=== PATIENT | female | born 1945 | race American Indian/Alaskan Native ===

== ENCOUNTER 2019-05-05 23:22 | Inpatient (IN) | payer MEDICARE, MEDICAID ==
--- NOTE | 2019-05-06 00:16 | XRay Report ---
CHEST 1 VIEW INDICATION: Dyspnea. COMPARISON: none FINDINGS: SUPPORT DEVICES: Pacing device located left hemithorax electrode tips right atrium and right ventricl e HEART / MEDIASTINUM: No significant abnormality. LUNGS / PLEURA: No significant pulmonary or pleural abnormality. No pneumothorax. ADDITIONAL FINDINGS: IMPRESSION: 1. No acute findings. Signer Name: Hiram Vasquez MD Signed: 05/06/2019 12:12 AM Workstation Name: [id number]
[2019-05-06] MEDS ORDERED: IPRATROPIUM 0.02% NEBU 2.5 ML IH ONE (00:27)
[2019-05-06] MEDS ORDERED: MAGNESIUM SULFATE 2 GM/50 ML BAG IV ONE (00:27)
[2019-05-06] MEDS ORDERED: methylPREDNISolone Sod Succinate 125 MG/2 ML INJ IV ONE (00:27)
[2019-05-06] MEDS ORDERED: ALBUTEROL 2.5 MG/3 ML NEBU IH ONE (00:27)
--- NOTE | 2019-05-06 00:28 | Emergency Department Report ---
ED Shortness of Breath HPI - General Chief Complaint: Dyspnea/Respdistress Stated Complaint: DWAYNE Time Seen by Provider: 05/05/19 23:24 Source: patient, family, EMS (verbal report received from EMS.EMS records not available at time of chart dictation.), RN notes reviewed Mode of arrival: Stretcher Limitations: Physical Limitation - History of Present Illness Initial Comments: The patient is a 74-year-old female visiting from [place]. She has a history of reported ICD/pacemaker, as well as congestive heart failure. She and her family are not certain about the other details of her past medical history. Presents to the ER with complaint of pain and the shortness of breath wheezing. Patient states " Im full of fluid." EMS gave the patient 5 mg of albuterol in the field The patient denies physical pain. MD Complaint: shortness of breath -: Gradual, days(s) (1) Consistency: constant Improves With: oxygen, rest, upright position Worsens With: lying flat, exertion Known History Of: congestive heart failure Treatments Prior to Arrival: bronchodilator - Related Data Home Oxygen Therapy: No Home Medications Medication Instructions Recorded Confirmed Last Taken AtorvaSTATin [Lipitor] 40 mg PO QHS 05/06/19 05/06/19 Unknown Budesonide/Formoterol Fumarate 2 puff IH BID 05/06/19 05/06/19 Unknown [Symbicort 160-4.5 Mcg Inhaler] Bumetanide 2.5 mg PO BID 05/06/19 05/06/19 Unknown Clopidogrel [Plavix] 75 mg PO QDAY 05/06/19 05/06/19 Unknown Fluticasone/Vilanterol [Breo 1 puff IH DAILY 05/06/19 05/06/19 Unknown Ellipta 200-25 Mcg INH] Gabapentin [Neurontin] 100 mg PO TID 05/06/19 05/06/19 Unknown Insulin Aspart (Nf) [NovoLOG 100 5 units SUB-Q TID 05/06/19 05/06/19 Unknown UNITS/ML VIAL] Ipratropium/Albuter (Nf) 1 puff IH Q8HR 05/06/19 05/06/19 Unknown [Combivent Inhaler] Levothyroxine [Synthroid] 100 mcg PO QAM 05/06/19 05/06/19 Unknown Nystatin [Nystop Powder] 1 applicatio TP BID 05/06/19 05/06/19 Unknown PANTOPRAZOLE SODIUM (nf) [Protonix 40 mg PO DAILY 05/06/19 05/06/19 Unknown GRANULES] Potassium Chloride 20 meq PO DAILY 05/06/19 05/06/19 Unknown Sacubitril/Valsartan [Entresto 1 tab PO BID 05/06/19 05/06/19 Unknown 49-51 mg] allopurinoL [Zyloprim] 100 mg PO QDAY 05/06/19 05/06/19 Unknown carvediloL [Coreg] 25 mg PO DAILY 05/06/19 05/06/19 Unknown Allergies Allergy/AdvReac Type Severity Reaction Status Date / Time Penicillins Allergy Unknown Verified 05/05/19 23:49 ED Review of Systems ROS: Stated complaint: DWAYNE Other details as noted in HPI Constitutional: malaise ENT: congestion Respiratory: shortness of breath, SOB with exertion Cardiovascular: edema. denies: chest pain Endocrine: see HPI Gastrointestinal: denies: vomiting Genitourinary: as per HPI Musculoskeletal: as per HPI Skin: as per HPI Neurological: as per HPI, weakness Psychiatric: as per HPI ED Past Medical Hx - Past Medical History Previous Medical History?: Yes Hx CVA: Yes Hx Heart Attack/AMI: Yes Hx Congestive Heart Failure: Yes Hx Diabetes: Yes Hx COPD: Yes - Surgical History Past Surgical History?: Yes Hx Coronary Stent: Yes Hx Pacemaker: Yes (defib implant) Additional Surgical History: triple bypass - Social History Smoking Status: Former Smoker Substance Use Type: None - Medications Home Medications: Home Medications Medication Instructions Recorded Confirmed Last Taken Type AtorvaSTATin [Lipitor] 40 mg PO QHS 05/06/19 05/06/19 Unknown History Budesonide/Formoterol Fumarate 2 puff IH BID 05/06/19 05/06/19 Unknown History [Symbicort 160-4.5 Mcg Inhaler] Bumetanide 2.5 mg PO BID 05/06/19 05/06/19 Unknown History Clopidogrel [Plavix] 75 mg PO QDAY 05/06/19 05/06/19 Unknown History Fluticasone/Vilanterol [Breo 1 puff IH DAILY 05/06/19 05/06/19 Unknown History Ellipta 200-25 Mcg INH] Gabapentin [Neurontin] 100 mg PO TID 05/06/19 05/06/19 Unknown History Insulin Aspart (Nf) [NovoLOG 100 5 units SUB-Q TID 05/06/19 05/06/19 Unknown History UNITS/ML VIAL] Ipratropium/Albuter (Nf) 1 puff IH Q8HR 05/06/19 05/06/19 Unknown History [Combivent Inhaler] Levothyroxine [Synthroid] 100 mcg PO QAM 05/06/19 05/06/19 Unknown History Nystatin [Nystop Powder] 1 applicatio TP BID 05/06/19 05/06/19 Unknown History PANTOPRAZOLE SODIUM (nf) [Protonix 40 mg PO DAILY 05/06/19 05/06/19 Unknown History GRANULES] Potassium Chloride 20 meq PO DAILY 05/06/19 05/06/19 Unknown History Sacubitril/Valsartan [Entresto 1 tab PO BID 05/06/19 05/06/19 Unknown History 49-51 mg] allopurinoL [Zyloprim] 100 mg PO QDAY 05/06/19 05/06/19 Unknown History carvediloL [Coreg] 25 mg PO DAILY 05/06/19 05/06/19 Unknown History ED Physical Exam - General Limitations: Physical Limitation General appearance: anxious, lethargic, obese - Head Head exam: Present: atraumatic, normocephalic - Eye Eye exam: Present: normal appearance, EOMI - ENT ENT exam: Present: normal exam, normal orophraynx, mucous membranes moist, normal external ear exam - Neck Neck exam: Present: normal inspection, full ROM. Absent: tenderness, meningismus - Respiratory Respiratory exam: Present: respiratory distress, rales - Cardiovascular Cardiovascular Exam: Present: regular rate, normal rhythm, normal heart sounds. Absent: bradycardia, tachycardia, irregular rhythm, systolic murmur, diastolic murmur, rubs, gallop - GI/Abdominal GI/Abdominal exam: Present: soft. Absent: distended, tenderness, guarding, rebound, rigid, pulsatile mass - Extremities Exam Extremities exam: Present: normal inspection, full ROM, pedal edema, other (2+ pulses noted in the bilateral upper and lower extremities. The pelvis is stable. There is no long bony tenderness. The muscular compartments are soft. There is no redness, pus, streaking or erythema.). Absent: calf tenderness - Back Exam Back exam: Present: normal inspection. Absent: tenderness, CVA tenderness (R), CVA tenderness (L), paraspinal tenderness, vertebral tenderness - Neurological Exam Neurological exam: Present: other (there is no facial droop. The tongue is midline. Extraocular movements are intact bilaterally. Speaking in full sentences. Hearing is grossly intact. 5 out of 5 strength bilateral upper and lower extremities. Sensation is intact to light touch bilateral upper and lower extremities.). Absent: alert (the patient is listless, but arousable) - Psychiatric Psychiatric exam: Present: flat affect - Skin Skin exam: Present: warm, dry, intact, normal color. Absent: rash ED Course Vital Signs 05/05/19 23:49 Temperature 97.5 F L Pulse Rate 81 Respiratory 23 Rate Blood Pressure 131/68 [Left] O2 Sat by Pulse 98 Oximetry - Reevaluation(s) Reevaluation #1: 05/06/19 00:25 Differential diagnoses, including not limited to: Asthma, COPD, bronchitis, pneumonia, congestive heart failure Assessment and plan: 74-year-old female with audible wheezing, crackles, rales, likely having fluid overload/CHF exacerbation. She is mentating but sleepy, however she is arousable, started on BiPAP therapy. Screening laboratory studies ordered. Radiology x-ray interpretation is reviewed and appreciated, however, it is my interpretation that the x-ray shows pulmonary vascular congestion. The patient on BiPAP at this time. We have requested medications be Reconciled. Reevaluation #2: 05/06/19 00:49 Feeling improved. Mental status improved. Patient appears to have history of COPD, diabetes, high cholesterol, CHF, currently on Plavix, unknown if she has any stents. Medication reconciliation pending. Laboratory studies pending. Reevaluation #3: 05/06/19 01:31 Laboratory studies reviewed and appreciated. Patient not having chest pain. This is likely a type II troponin leak, likely secondary to multiple medical comorbidities, and question cardiorenal syndrome. Lasix ordered. Hospital physician, Dr. Staton to accept patient to the medical service ED Medical Decision Making - Lab Data Result diagrams: 05/06/19 00:14 05/06/19 00:14 Vital Signs 05/05/19 23:49 Temperature 97.5 F L Pulse Rate 81 Respiratory 23 Rate Blood Pressure 131/68 [Left] O2 Sat by Pulse 98 Oximetry Vital Signs 05/05/19 23:49 Temperature 97.5 F L Pulse Rate 81 Respiratory 23 Rate Blood Pressure 131/68 [Left] O2 Sat by Pulse 98 Oximetry Lab Results 05/06/19 05/06/19 05/06/19 Range/Units 00:14 00:14 00:14 WBC 10.9 (4.5-11.0) K/mm3 RBC 3.78 (3.65-5.03) M/mm3 Hgb 10.8 (10.1-14.3) gm/dl Hct 35.0 (30.3-42.9) % MCV 93 (79-97) fl MCH 29 (28-32) pg MCHC 31 (30-34) % RDW 18.5 H (13.2-15.2) % Plt Count 193 (140-440) K/mm3 Lymph % (Auto) 8.3 L (13.4-35.0) % [place] % (Auto) 6.0 (0.0-7.3) % Eos % (Auto) 1.3 (0.0-4.3) % Baso % (Auto) 1.6 (0.0-1.8) % Lymph # 0.9 L (1.2-5.4) K/mm3 [place] # 0.6 (0.0-0.8) K/mm3 Eos # 0.1 (0.0-0.4) K/mm3 Baso # 0.2 H (0.0-0.1) K/mm3 Seg Neutrophils % 82.8 H (40.0-70.0) % Seg Neutrophils # 9.0 H (1.8-7.7) K/mm3 PT 14.3 (12.2-14.9) Sec. INR 1.10 (0.87-1.13) APTT 27.7 (24.2-36.6) Sec. Sodium 141 (137-145) mmol/L Potassium 5.1 H (3.6-5.0) mmol/L Chloride 105.4 (98-107) mmol/L Carbon Dioxide 24 (22-30) mmol/L Anion Gap 17 mmol/L BUN 62 H (7-17) mg/dL Creatinine 2.2 H (0.7-1.2) mg/dL Estimated GFR 22 ml/min BUN/Creatinine Ratio 28 % Glucose 173 H (65-100) mg/dL Calcium 9.9 (8.4-10.2) mg/dL Magnesium 2.00 (1.7-2.3) mg/dL Total Bilirubin 0.50 (0.1-1.2) mg/dL AST 15 (5-40) units/L ALT 9 (7-56) units/L Alkaline Phosphatase 56 (35-129) units/L Total Creatine Kinase (30-135) units/L Troponin T 0.112 H* (0.00-0.029) ng/mL Total Protein 7.6 (6.3-8.2) g/dL Albumin 3.7 L (3.9-5) g/dL Albumin/Globulin Ratio 0.9 % 05/06/19 Range/Units 00:14 WBC (4.5-11.0) K/mm3 RBC (3.65-5.03) M/mm3 Hgb (10.1-14.3) gm/dl Hct (30.3-42.9) % MCV (79-97) fl MCH (28-32) pg MCHC (30-34) % RDW (13.2-15.2) % Plt Count (140-440) K/mm3 Lymph % (Auto) (13.4-35.0) % [place] % (Auto) (0.0-7.3) % Eos % (Auto) (0.0-4.3) % Baso % (Auto) (0.0-1.8) % Lymph # (1.2-5.4) K/mm3 [place] # (0.0-0.8) K/mm3 Eos # (0.0-0.4) K/mm3 Baso # (0.0-0.1) K/mm3 Seg Neutrophils % (40.0-70.0) % Seg Neutrophils # (1.8-7.7) K/mm3 PT (12.2-14.9) Sec. INR (0.87-1.13) APTT (24.2-36.6) Sec. Sodium (137-145) mmol/L Potassium (3.6-5.0) mmol/L Chloride (98-107) mmol/L Carbon Dioxide (22-30) mmol/L Anion Gap mmol/L BUN (7-17) mg/dL Creatinine (0.7-1.2) mg/dL Estimated GFR ml/min BUN/Creatinine Ratio % Glucose (65-100) mg/dL Calcium (8.4-10.2) mg/dL Magnesium (1.7-2.3) mg/dL Total Bilirubin (0.1-1.2) mg/dL AST (5-40) units/L ALT (7-56) units/L Alkaline Phosphatase (35-129) units/L Total Creatine Kinase 53 (30-135) units/L Troponin T (0.00-0.029) ng/mL Total Protein (6.3-8.2) g/dL Albumin (3.9-5) g/dL Albumin/Globulin Ratio % - EKG Data 05/06/19 00:27 There is no prior EKG available for comparison. There is an atrioventricular paced rhythm, with good capture, not consistent with STEMI, left ventricular hypertrophy, leftward axis deviation, no prior for comparison, not consistent with ST elevation myocardial infarction - Radiology Data Radiology results: pending, report reviewed, image reviewed Critical Care Time: Yes Critical care time in (mins) excluding proc time.: 35 Critical care attestation.: If time is entered above; I have spent that time in minutes in the direct care of this critically ill patient, excluding procedure time. ED Disposition Clinical Impression: Cardiorenal syndrome with renal failure Disposition: OP ADMIT IP TO THIS HOSP Is pt being admited?: Yes Does the pt Need Aspirin: Yes Condition: Stable
[2019-05-06 00:42] LABS: Basophils # (Auto) 0.2 K/mm3 (0.0-0.1); Basophils % (Auto) 1.6 % (0.0-1.8); Eosinophils # (Auto) 0.1 K/mm3 (0.0-0.4); Eosinophils % (Auto) 1.3 % (0.0-4.3); Hemoglobin 10.8 gm/dl (10.1-14.3); Lymphocytes # (Auto) 0.9 K/mm3 (1.2-5.4); Lymphocytes % (Auto) 8.3 % (13.4-35.0); Mean Corpuscular HGB Conc 31 % (30-34); Mean Corpuscular Volume 93 fl (79-97); Monocytes # (Auto) 0.6 K/mm3 (0.0-0.8); Platelet Count 193 K/mm3 (140-440); Red Blood Count 3.78 M/mm3 (3.65-5.03); Red Cell Distribution Width 18.5 % (13.2-15.2)
[2019-05-06 00:54] LABS: INR 1.1 (0.87-1.13); Partial Thromboplastin Time 27.7 Sec. (24.2-36.6)
[2019-05-06 00:58] LABS: Albumin 3.7 g/dL (3.9-5); Calcium 9.9 mg/dL (8.4-10.2)
[2019-05-06] MEDS ORDERED: ASPIRIN 81 MG TAB CHEW PO ONE (01:31)
[2019-05-06] MEDS ORDERED: FUROSEMIDE 40 MG/4 ML INJ IV ONE (01:32)
[2019-05-06 01:56] LABS: Chol/HDL Ratio 2.72 %
[2019-05-06] MEDS ORDERED: ASPIRIN 600 MG RECT SUPP PR ONE (02:04)
[2019-05-06] MEDS ORDERED: ASPIRIN 300 MG RECT SUPP PR ONE (02:04)
[2019-05-06] MEDS ORDERED: DEXTROSE 50% IN WATER (25GM) 50 ML SYRINGE IV PRN (02:19)
[2019-05-06] MEDS ORDERED: ALBUTEROL 2.5 MG/3 ML NEBU IH PRN (02:19)
[2019-05-06] MEDS ORDERED: ACETAMINOPHEN 325 MG TAB PO PRN (02:19)
[2019-05-06] MEDS ORDERED: NITROGLYCERIN 0.4 MG TAB SUBL SL PRN (02:19)
[2019-05-06] MEDS ORDERED: ONDANSETRON 4 MG/2 ML INJ IV PRN (02:19)
--- NOTE | 2019-05-06 02:45 | History and Physical Report ---
<ADARSH HILL - Last Filed: 05/06/19 02:52> History of Present Illness Date of examination: 05/06/19 Date of admission: 05/06/2019 Chief complaint: SOB and wheezing History of present illness: 74-year-old female with history of CHF, pacemaker/ICD, CVA, AK, hypertension, diabetes, COPD, gout, hypothyroidism GERD, and HLD who presents to [facility] ED via EMS with complaints of shortness of breath and wheezing . Patient lives in [place] and is visiting her family here in [place]. Patient is a poor historian and unable to provide detailed history. History is provided by family and medical records. Pt stated to ER physician that her lungs are filled of fluid. At the time of my examination pt is drowsy easily aroused but quickly dozes back off. She did not answer any questions. She opened her eyes to light touch. Past History Past Medical History: acute AK, COPD, diabetes, GERD, heart failure, hypertension, hyperlipidemia, hypothyroidism, stroke, other (Gout, ) Past Surgical History: Other (pacemaker/ICD) Social history: lives with family (lives in [place] visiting with family in [place]; former smoker) Family history: no significant family history Medications and Allergies Allergies Allergy/AdvReac Type Severity Reaction Status Date / Time Penicillins Allergy Unknown Verified 05/05/19 23:49 Home Medications Medication Instructions Recorded Confirmed Last Taken Type AtorvaSTATin [Lipitor] 40 mg PO QHS 05/06/19 05/06/19 Unknown History Budesonide/Formoterol Fumarate 2 puff IH BID 05/06/19 05/06/19 Unknown History [Symbicort 160-4.5 Mcg Inhaler] Bumetanide 2.5 mg PO BID 05/06/19 05/06/19 Unknown History Clopidogrel [Plavix] 75 mg PO QDAY 05/06/19 05/06/19 Unknown History Fluticasone/Vilanterol [Breo 1 puff IH DAILY 05/06/19 05/06/19 Unknown History Ellipta 200-25 Mcg INH] Gabapentin [Neurontin] 100 mg PO TID 05/06/19 05/06/19 Unknown History Insulin Aspart (Nf) [NovoLOG 100 5 units SUB-Q TID 05/06/19 05/06/19 Unknown History UNITS/ML VIAL] Ipratropium/Albuter (Nf) 1 puff IH Q8HR 05/06/19 05/06/19 Unknown History [Combivent Inhaler] Levothyroxine [Synthroid] 100 mcg PO QAM 05/06/19 05/06/19 Unknown History Nystatin [Nystop Powder] 1 applicatio TP BID 05/06/19 05/06/19 Unknown History PANTOPRAZOLE SODIUM (nf) [Protonix 40 mg PO DAILY 05/06/19 05/06/19 Unknown Hi story GRANULES] Potassium Chloride 20 meq PO DAILY 05/06/19 05/06/19 Unknown History Sacubitril/Valsartan [Entresto 1 tab PO BID 05/06/19 05/06/19 Unknown History 49-51 mg] allopurinoL [Zyloprim] 100 mg PO QDAY 05/06/19 05/06/19 Unknown History carvediloL [Coreg] 25 mg PO DAILY 05/06/19 05/06/19 Unknown History Active Meds: Active Medications Acetaminophen (Tylenol) 650 mg PO Q4H PRN PRN Reason: Pain MILD(1-3)/Fever >100.5/JENKINS Albuterol (Proventil) 2.5 mg IH Q3HRT PRN PRN Reason: Shortness Of Breath Albuterol/Ipratropium (Duoneb *Not For Prn Use*) 1 ampul IH Q4HRT [facility] Allopurinol (Zyloprim) 100 mg PO QDAY [facility] Atorvastatin Calcium (Lipitor) 40 mg PO QHS [facility] Budesonide (Pulmicort) 0.5 mg IH Q12HRT [facility] Carvedilol (Coreg) 25 mg PO DAILY [facility] Clopidogrel Bisulfate (Plavix) 75 mg PO QDAY [facility] Dextrose (D50w (25gm) Syringe) 50 ml IV Q30MIN PRN; Protocol PRN Reason: Hypoglycemia Docusate Sodium (Colace) 100 mg PO BID [facility] Furosemide (Lasix) 40 mg IV BID@0600,1800 [facility] Gabapentin (Gabapentin) 100 mg PO TID [facility] Heparin Sodium (Porcine) (Heparin) 5,000 unit SUB-Q Q12HR [facility] Insulin Human Lispro (Humalog) 0 unit SUB-Q ACHS [facility]; Protocol Levothyroxine Sodium (Synthroid) 100 mcg PO QAM [facility] Miscellaneous Medication (Pantoprazole Sodium (Nf)) 40 mg PO DAILY [facility] Nitroglycerin (Nitrostat) 0.4 mg SL .Q5MIN PRN PRN Reason: Chest Pain Ondansetron HCl (Zofran) 4 mg IV Q8H PRN PRN Reason: Nausea And Vomiting Sodium Chloride (Sodium Chloride Flush Syringe 10 Ml) 10 ml IV BID [facility] Sodium Chloride (Sodium Chloride Flush Syringe 10 Ml) 10 ml IV PRN PRN PRN Reason: LINE FLUSH Review of Systems ROS unobtainable: due to mental status All systems: negative Exam - Physical Exam Narrative exam: Physical exam General appearance: Present: no acute distress, resting easily aroused but does not stay awake for long, obese, older adult female - EENT Eyes: Present: PERRL, EOM intact ENT: hearing intact, normal dentition - Neck Neck: Present: supple, normal ROM - Respiratory Respiratory effort: Non-labored, on BiPaP Respiratory: crackles and wheezing - Cardiovascular Heart rate: 81 (bpm) Rhythm: Paced Sinus rhythm Heart Sounds: Present: S1 & S2. Absent: rub, click - Extremities Extremities: no ischemia, pulses intact, trace pedal edema - Peripheral Assessment Peripheral Pulses: within normal limits - Abdominal General gastrointestinal: obese, soft, non-tender, normal bowel sounds - Integumentary Integumentary: Present: warm, dry - Musculoskeletal Musculoskeletal: Able to move all extremities -Neurological Neurological: deferred - Psychiatric Psychiatric: unable to assess - Constitutional Vitals: Temp Pulse Resp BP Pulse Ox 97.5 F L 88 22 131/68 98 05/05/19 23:49 05/06/19 02:29 05/06/19 02:29 05/05/19 23:49 05/05/19 23:49 Results - Labs CBC & Chem 7: 05/06/19 00:14 05/06/19 00:14 Labs: Laboratory Last Values WBC 10.9 K/mm3 (4.5-11.0) 05/06/19 00:14 RBC 3.78 M/mm3 (3.65-5.03) 05/06/19 00:14 Hgb 10.8 gm/dl (10.1-14.3) 05/06/19 00:14 Hct 35.0 % (30.3-42.9) 05/06/19 00:14 MCV 93 fl (79-97) 05/06/19 00:14 MCH 29 pg (28-32) 05/06/19 00:14 MCHC 31 % (30-34) 05/06/19 00:14 RDW 18.5 % (13.2-15.2) H 05/06/19 00:14 Plt Count 193 K/mm3 (140-440) 05/06/19 00:14 Lymph % (Auto) 8.3 % (13.4-35.0) L 05/06/19 00:14 Ponce % (Auto) 6.0 % (0.0-7.3) 05/06/19 00:14 Eos % (Auto) 1.3 % (0.0-4.3) 05/06/19 00:14 Baso % (Auto) 1.6 % (0.0-1.8) 05/06/19 00:14 Lymph # 0.9 K/mm3 (1.2-5.4) L 05/06/19 00:14 Ponce # 0.6 K/mm3 (0.0-0.8) 05/06/19 00:14 Eos # 0.1 K/mm3 (0.0-0.4) 05/06/19 00:14 Baso # 0.2 K/mm3 (0.0-0.1) H 05/06/19 00:14 Seg Neutrophils % 82.8 % (40.0-70.0) H 05/06/19 00:14 Seg Neutrophils # 9.0 K/mm3 (1.8-7.7) H 05/06/19 00:14 PT 14.3 Sec. (12.2-14.9) 05/06/19 00:14 INR 1.10 (0.87-1.13) 05/06/19 00:14 APTT 27.7 Sec. (24.2-36.6) 05/06/19 00:14 POC ABG pH 7.406 (7.35-7.45) 05/06/19 01:12 POC ABG pCO2 39.1 (35-45) 05/06/19 01:12 POC ABG pO2 133 (80-105) H 05/06/19 01:12 POC ABG HCO3 24.6 (22-26 mml/L) 05/06/19 01:12 POC ABG Total CO2 26 (23-27mmol/L) 05/06/19 01:12 POC ABG O2 Sat 99 05/06/19 01:12 POC ABG Base Excess 0 ((-2) - (+3)mmol/L) 05/06/19 01:12 FiO2 35 % 05/06/19 01:12 Sodium 141 mmol/L (137-145) 05/06/19 00:14 Potassium 5.1 mmol/L (3.6-5.0) H 05/06/19 00:14 Chloride 105.4 mmol/L (98-107) 05/06/19 00:14 Carbon Dioxide 24 mmol/L (22-30) 05/06/19 00:14 Anion Gap 17 mmol/L 05/06/19 00:14 BUN 62 mg/dL (7-17) H 05/06/19 00:14 Creatinine 2.2 mg/dL (0.7-1.2) H 05/06/19 00:14 Estimated GFR 22 ml/min 05/06/19 00:14 BUN/Creatinine Ratio 28 % 05/06/19 00:14 Glucose 173 mg/dL (65-100) H 05/06/19 00:14 Calcium 9.9 mg/dL (8.4-10.2) 05/06/19 00:14 Magnesium 2.00 mg/dL (1.7-2.3) 05/06/19 00:14 Total Bilirubin 0.50 mg/dL (0.1-1.2) 05/06/19 00:14 AST 15 units/L (5-40) 05/06/19 00:14 ALT 9 units/L (7-56) 05/06/19 00:14 Alkaline Phosphatase 56 units/L (35-129) 05/06/19 00:14 Total Creatine Kinase 53 units/L (30-135) 05/06/19 00:14 Troponin T 0.112 ng/mL (0.00-0.029) H* 05/06/19 00:14 NT-Pro-B Natriuret Pep 65453 pg/mL (0-900) H 05/06/19 00:14 Total Protein 7.6 g/dL (6.3-8.2) 05/06/19 00:14 Albumin 3.7 g/dL (3.9-5) L 05/06/19 00:14 Albumin/Globulin Ratio 0.9 % 05/06/19 00:14 Triglycerides 76 mg/dL (2-149) 05/06/19 00:14 Cholesterol 161 mg/dL (50-199) 05/06/19 00:14 LDL Cholesterol Direct 93 mg/dL (50-130) 05/06/19 00:14 HDL Cholesterol 59 mg/dL (40-59) 05/06/19 00:14 Cholesterol/HDL Ratio 2.72 % 05/06/19 00:14 - Imaging and Cardiology Imaging and Cardiology: CXR: Findings: Lung/pleura: No significant pulmonary or pleural abnormality. No pneumothorax Impressions: 1. No acute findings. Assessment and Plan Assessment and plan: 74-year-old female with history of CHF, pacemaker/ICD, CVA, AK, hypertension, diabetes, COPD, gout, hypothyroidism GERD, and HLD who presents to [facility] ED via EMS with complaints of shortness of breath and wheezing. Acute Exacerbation CHF -Pacemaker/ [place] [address] -CXR unrevealing -Start IV Lasix BID -On Plavix, statin, BB, LUIS EDUARDO -Cardiology consulted Acute exacerbation COPD -Increased shortness of breath -Scheduled to DuoNebs and Pulmicort, albuterol when necessary -IV systemic steroids Acute kidney injury -Cr on admission 2.2 -??CKD with GFR 22 -Avoid nephrotoxic agents -Renal dose all meds -Nephrology consulted Elevated Troponin -0.112 -?? troponin leak d/t AE CHF -??NSTEMI type 2 -Will trend cardiac enzymes HTN -Monitor BP -Resume home hypertensive meds DM -POC BG monitoring -SSI coverage prn -HgbA1C pending GERD -Continue Protonix Hypothyroidism -Continue home dose Synthroid -TSH and T4 pending DVT PPX -on Plavix and SCD's Advance Directives: No VTE prophylaxis?: Chemical Plan of care discussed with patient/family: Yes <VILMA ANDERSON - Last Filed: 05/06/19 06:20> History of Present Illness Date of admission: 05/06/19 01:31 Medications and Allergies Active Meds: Active Medications Acetaminophen (Tylenol) 650 mg PO Q4H PRN PRN Reason: Pain MILD(1-3)/Fever >100.5/JENKINS Albuterol (Proventil) 2.5 mg IH Q3HRT PRN PRN Reason: Shortness Of Breath Albuterol/Ipratropium (Duoneb *Not For Prn Use*) 1 ampul IH Q4HRT [facility] Last Admin: 05/06/19 03:44 Dose: 1 ampul Documented by: Allopurinol (Zyloprim) 100 mg PO QDAY [facility] Atorvastatin Calcium (Lipitor) 40 mg PO QHS [facility] Budesonide (Pulmicort) 0.5 mg IH Q12HRT [facility] Carvedilol (Coreg) 25 mg PO DAILY [facility] Clopidogrel Bisulfate (Plavix) 75 mg PO QDAY [facility] Dextrose (D50w (25gm) Syringe) 50 ml IV Q30MIN PRN; Protocol PRN Reason: Hypoglycemia Docusate Sodium (Colace) 100 mg PO BID [facility] Furosemide (Lasix) 40 mg IV BID@0600,1800 [facility] Last Admin: 05/06/19 05:12 Dose: 40 mg Documented by: Gabapentin (Gabapentin) 100 mg PO TID [facility] Insulin Human Lispro (Humalog) 0 unit SUB-Q ACHS [facility]; Protocol Levothyroxine Sodium (Synthroid) 100 mcg PO QAM@0600 [facility] Last Admin: 05/06/19 05:12 Dose: 100 mcg Documented by: Methylprednisolone Sodium Succinate (Solu-Medrol) 60 mg IV Q8HR [facility] Last Admin: 05/06/19 05:12 Dose: 60 mg Documented by: Nitroglycerin (Nitrostat) 0.4 mg SL .Q5MIN PRN PRN Reason: Chest Pain Ondansetron HCl (Zofran) 4 mg IV Q8H PRN PRN Reason: Nausea And Vomiting Pantoprazole Sodium (Protonix) 40 mg PO DAILY [facility] Sodium Chloride (Sodium Chloride Flush Syringe 10 Ml) 10 ml IV BID [facility] Sodium Chloride (Sodium Chloride Flush Syringe 10 Ml) 10 ml IV PRN PRN PRN Reason: LINE FLUSH Exam - Constitutional Vitals: Temp Pulse Resp BP Pulse Ox 99.5 F 71 20 145/69 100 05/06/19 03:59 05/06/19 03:57 05/06/19 03:57 05/06/19 03:57 05/06/19 03:57 Results - Labs CBC & Chem 7: 05/06/19 00:14 05/06/19 00:14 Labs: Laboratory Last Values WBC 10.9 K/mm3 (4.5-11.0) 05/06/19 00:14 RBC 3.78 M/mm3 (3.65-5.03) 05/06/19 00:14 Hgb 10.8 gm/dl (10.1-14.3) 05/06/19 00:14 Hct 35.0 % (30.3-42.9) 05/06/19 00:14 MCV 93 fl (79-97) 05/06/19 00:14 MCH 29 pg (28-32) 05/06/19 00:14 MCHC 31 % (30-34) 05/06/19 00:14 RDW 18.5 % (13.2-15.2) H 05/06/19 00:14 Plt Count 193 K/mm3 (140-440) 05/06/19 00:14 Lymph % (Auto) 8.3 % (13.4-35.0) L 05/06/19 00:14 Ponce % (Auto) 6.0 % (0.0-7.3) 05/06/19 00:14 Eos % (Auto) 1.3 % (0.0-4.3) 05/06/19 00:14 Baso % (Auto) 1.6 % (0.0-1.8) 05/06/19 00:14 Lymph # 0.9 K/mm3 (1.2-5.4) L 05/06/19 00:14 Ponce # 0.6 K/mm3 (0.0-0.8) 05/06/19 00:14 Eos # 0.1 K/mm3 (0.0-0.4) 05/06/19 00:14 Baso # 0.2 K/mm3 (0.0-0.1) H 05/06/19 00:14 Seg Neutrophils % 82.8 % (40.0-70.0) H 05/06/19 00:14 Seg Neutrophils # 9.0 K/mm3 (1.8-7.7) H 05/06/19 00:14 PT 14.3 Sec. (12.2-14.9) 05/06/19 00:14 INR 1.10 (0.87-1.13) 05/06/19 00:14 APTT 27.7 Sec. (24.2-36.6) 05/06/19 00:14 POC ABG pH 7.406 (7.35-7.45) 05/06/19 01:12 POC ABG pCO2 39.1 (35-45) 05/06/19 01:12 POC ABG pO2 133 (80-105) H 05/06/19 01:12 POC ABG HCO3 24.6 (22-26 mml/L) 05/06/19 01:12 POC ABG Total CO2 26 (23-27mmol/L) 05/06/19 01:12 POC ABG O2 Sat 99 05/06/19 01:12 POC ABG Base Excess 0 ((-2) - (+3)mmol/L) 05/06/19 01:12 FiO2 35 % 05/06/19 01:12 Sodium 141 mmol/L (137-145) 05/06/19 00:14 Potassium 5.1 mmol/L (3.6-5.0) H 05/06/19 00:14 Chloride 105.4 mmol/L (98-107) 05/06/19 00:14 Carbon Dioxide 24 mmol/L (22-30) 05/06/19 00:14 Anion Gap 17 mmol/L 05/06/19 00:14 BUN 62 mg/dL (7-17) H 05/06/19 00:14 Creatinine 2.2 mg/dL (0.7-1.2) H 05/06/19 00:14 Estimated GFR 22 ml/min 05/06/19 00:14 BUN/Creatinine Ratio 28 % 05/06/19 00:14 Glucose 173 mg/dL (65-100) H 05/06/19 00:14 Calcium 9.9 mg/dL (8.4-10.2) 05/06/19 00:14 Magnesium 2.00 mg/dL (1.7-2.3) 05/06/19 00:14 Total Bilirubin 0.50 mg/dL (0.1-1.2) 05/06/19 00:14 AST 15 units/L (5-40) 05/06/19 00:14 ALT 9 units/L (7-56) 05/06/19 00:14 Alkaline Phosphatase 56 units/L (35-129) 05/06/19 00:14 Total Creatine Kinase 53 units/L (30-135) 05/06/19 00:14 Troponin T 0.112 ng/mL (0.00-0.029) H* 05/06/19 00:14 NT-Pro-B Natriuret Pep 39072 pg/mL (0-900) H 05/06/19 00:14 Total Protein 7.6 g/dL (6.3-8.2) 05/06/19 00:14 Albumin 3.7 g/dL (3.9-5) L 05/06/19 00:14 Albumin/Globulin Ratio 0.9 % 05/06/19 00:14 Triglycerides 76 mg/dL (2-149) 05/06/19 00:14 Cholesterol 161 mg/dL (50-199) 05/06/19 00:14 LDL Cholesterol Direct 93 mg/dL (50-130) 05/06/19 00:14 HDL Cholesterol 59 mg/dL (40-59) 05/06/19 00:14 Cholesterol/HDL Ratio 2.72 % 05/06/19 00:14 Assessment and Plan Assessment and plan: 74-year-old male with a history of CHF, hypertension, diabetes, COPD, GERD, hypothyroidism comes emergency room with complaints of shortness of breath. Patient with CHF/COPD exacerbation on BiPAP. Agree with plan as stated above, no LUIS EDUARDO inhibitor, unknown renal function baseline
[2019-05-06] MEDS: IPRATROPIUM/ALBUTEROL SULFATE 3 ML AMPUL.NEB IH SCH ×6 (03:44→23:52)
[2019-05-06] MEDS: LEVOTHYROXINE 100 MCG TAB PO SCH (05:12)
[2019-05-06] MEDS: methylPREDNISolone Sod Succinate 125 MG/2 ML INJ IV SCH ×3 (05:12→21:41)
[2019-05-06] MEDS ORDERED: FUROSEMIDE 40 MG/4 ML INJ IV SCH (06:00)
[2019-05-06 09:52] LABS: Creatine Kinase MB 2.2 ng/mL (0.0-4.0)
[2019-05-06] MEDS ORDERED: SACUBITRIL/VALSARTAN 49-51 MG TAB PO SCH (10:00)
[2019-05-06] MEDS ORDERED: ASPIRIN 81 MG TAB CHEW PO SCH (10:00)
[2019-05-06] MEDS ORDERED: PANTOPRAZOLE SODIUM 40 MG PO SCH (10:00)
[2019-05-06] MEDS ORDERED: HEPARIN 5,000 UNIT/1 ML VIAL SUB-Q SCH (10:00)
[2019-05-06] MEDS: INSULIN LISPRO 100 UNIT/ML SUB-Q SCH ×4 (10:10→21:38)
[2019-05-06] MEDS: carvediloL 25 MG TAB PO SCH (11:01)
[2019-05-06] MEDS: allopurinoL 100 MG TAB PO SCH (11:01)
[2019-05-06] MEDS: PANTOPRAZOLE 40 MG TAB PO SCH (11:02)
[2019-05-06] MEDS: CLOPIDOGREL 75 MG TAB PO SCH (11:02)
[2019-05-06] MEDS: DOCUSATE SODIUM 100 MG CAP PO SCH ×2 (11:03→21:42)
[2019-05-06] MEDS: GABAPENTIN 100 MG CAP PO SCH ×3 (11:09→20:47)
--- NOTE | 2019-05-06 13:26 | Consultation ---
History of Present Illness Consult date: 05/06/19 Requesting physician: ADARSH HILL Consult reason: congestive heart failure, elevated troponin History of present illness: Ms. Ricketts is a 74 y/o female who presented to [facility] with shortness of breath that worsened over the past day. She is visiting from [place], [place], and sees a transit worker in that area. 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 She denies CP and edema. CXR NAF, but troponins mildly elevated to 0.112 and 0.087. An echocardiogram on 05/06/19 found an EF of 40 to 45 percent, restrictive LV diastolic filling pattern, moderate to severe dilation of RA, mild to moderate dilation of RV, severe MR, moderate TR, RVSP of 61 mmHg. Past History Past Medical History: acute IA, CAD, COPD, diabetes, GERD, heart failure, hypertension, hyperlipidemia, hypothyroidism, stroke, other (Gout) Past Surgical History: Other (pacemaker/ICD) Social history: lives with family (lives in [place] visiting with family in [place]; former smoker) Family history: no significant family history Medications and Allergies Allergies Allergy/AdvReac Type Severity Reaction Status Date / Time Penicillins Allergy Unknown Verified 05/05/19 23:49 Home Medications Medication Instructions Recorded Confirmed Last Taken Type AtorvaSTATin [Lipitor] 40 mg PO QHS 05/06/19 05/06/19 Unknown History Budesonide/Formoterol Fumarate 2 puff IH BID 05/06/19 05/06/19 Unknown History [Symbicort 160-4.5 Mcg Inhaler] Bumetanide 2.5 mg PO BID 05/06/19 05/06/19 Unknown History Clopidogrel [Plavix] 75 mg PO QDAY 05/06/19 05/06/19 Unknown History Fluticasone/Vilanterol [Breo 1 puff IH DAILY 05/06/19 05/06/19 Unknown History Ellipta 200-25 Mcg INH] Gabapentin [Neurontin] 100 mg PO TID 05/06/19 05/06/19 Unknown History Insulin Aspart (Nf) [NovoLOG 100 5 units SUB-Q TID 05/06/19 05/06/19 Unknown History UNITS/ML VIAL] Ipratropium/Albuter (Nf) 1 puff IH Q8HR 05/06/19 05/06/19 Unknown History [Combivent Inhaler] Levothyroxine [Synthroid] 100 mcg PO QAM 05/06/19 05/06/19 Unknown History Nystatin [Nystop Powder] 1 applicatio TP BID 05/06/19 05/06/19 Unknown History PANTOPRAZOLE SODIUM (nf) [Protonix 40 mg PO DAILY 05/06/19 05/06/19 Unknown H istory GRANULES] Potassium Chloride 20 meq PO DAILY 05/06/19 05/06/19 Unknown History Sacubitril/Valsartan [Entresto 1 tab PO BID 05/06/19 05/06/19 Unknown History 49-51 mg] allopurinoL [Zyloprim] 100 mg PO QDAY 05/06/19 05/06/19 Unknown History carvediloL [Coreg] 25 mg PO DAILY 05/06/19 05/06/19 Unknown History Active Meds: Active Medications Acetaminophen (Tylenol) 650 mg PO Q4H PRN PRN Reason: Pain MILD(1-3)/Fever >100.5/JENKINS Albuterol (Proventil) 2.5 mg IH Q3HRT PRN PRN Reason: Shortness Of Breath Albuterol/Ipratropium (Duoneb *Not For Prn Use*) 1 ampul IH Q4HRT [facility] Last Admin: 05/06/19 03:44 Dose: 1 ampul Documented by: Allopurinol (Zyloprim) 100 mg PO QDAY [facility] Last Admin: 05/06/19 11:01 Dose: 100 mg Documented by: Atorvastatin Calcium (Lipitor) 40 mg PO QHS [facility] Budesonide (Pulmicort) 0.5 mg IH Q12HRT [facility] Carvedilol (Coreg) 25 mg PO DAILY [facility] Last Admin: 05/06/19 11:01 Dose: 25 mg Documented by: Clopidogrel Bisulfate (Plavix) 75 mg PO QDAY [facility] Last Admin: 05/06/19 11:02 Dose: 75 mg Documented by: Dextrose (D50w (25gm) Syringe) 50 ml IV Q30MIN PRN; Protocol PRN Reason: Hypoglycemia Docusate Sodium (Colace) 100 mg PO BID [facility] Last Admin: 05/06/19 11:03 Dose: 100 mg Documented by: Furosemide (Lasix) 40 mg IV BID@0600,1800 [facility] Last Admin: 05/06/19 05:12 Dose: 40 mg Documented by: Gabapentin (Gabapentin) 100 mg PO TID [facility] Last Admin: 05/06/19 13:00 Dose: Not Given Documented by: Insulin Human Lispro (Humalog) 0 unit SUB-Q ACHS [facility]; Protocol Last Admin: 05/06/19 12:40 Dose: 3 unit Documented by: Levothyroxine Sodium (Synthroid) 100 mcg PO QAM@0600 [facility] Last Admin: 05/06/19 05:12 Dose: 100 mcg Documented by: Methylprednisolone Sodium Succinate (Solu-Medrol) 60 mg IV Q8HR [facility] Last Admin: 05/06/19 13:02 Dose: 60 mg Documented by: Nitroglycerin (Nitrostat) 0.4 mg SL .Q5MIN PRN PRN Reason: Chest Pain Ondansetron HCl (Zofran) 4 mg IV Q8H PRN PRN Reason: Nausea And Vomiting Pantoprazole Sodium (Protonix) 40 mg PO DAILY [facility] Last Admin: 05/06/19 11:02 Dose: 40 mg Documented by: Sodium Chloride (Sodium Chloride Flush Syringe 10 Ml) 10 ml IV BID [facility] Last Admin: 05/06/19 11:03 Dose: 10 ml Documented by: Sodium Chloride (Sodium Chloride Flush Syringe 10 Ml) 10 ml IV PRN PRN PRN Reason: LINE FLUSH Review of Systems All systems: negative Respiratory: shortness of breath Physical Examination Last Vital Signs Temp 96.3 F L 05/06/19 11:13 Pulse 74 05/06/19 11:01 Resp 16 05/06/19 10:55 BP 143/77 05/06/19 11:01 Pulse Ox 100 05/06/19 10:55 General appearance: mild distress HEENT: Positive: PERRL Neck: Positive: neck supple Cardiac: Positive: Reg Rate and Rhythm Lungs: Positive: Rales, Rhonchi Neuro: Positive: Grossly Intact Abdomen: Positive: Unremarkable Female genitourinary: deferred Skin: Positive: Clear Extremities: Present: normal Results 05/06/19 00:14 05/06/19 00:14 Cardiac Enzymes 05/06/19 05/06/19 Range/Units 00:14 08:36 AST 15 (5-40) units/L CK-MB (CK-2) 2.2 (0.0-4.0) ng/mL Coagulation 05/06/19 Range/Units 00:14 PT 14.3 (12.2-14.9) Sec. INR 1.10 (0.87-1.13) APTT 27.7 (24.2-36.6) Sec. Lipids 05/06/19 Range/Units 00:14 Triglycerides 76 (2-149) mg/dL Cholesterol 161 (50-199) mg/dL HDL Cholesterol 59 (40-59) mg/dL Cholesterol/HDL Ratio 2.72 % CBC 05/06/19 Range/Units 00:14 WBC 10.9 (4.5-11.0) K/mm3 RBC 3.78 (3.65-5.03) M/mm3 Hgb 10.8 (10.1-14.3) gm/dl Hct 35.0 (30.3-42.9) % Plt Count 193 (140-440) K/mm3 Lymph # 0.9 L (1.2-5.4) K/mm3 Sawyer # 0.6 (0.0-0.8) K/mm3 Eos # 0.1 (0.0-0.4) K/mm3 Baso # 0.2 H (0.0-0.1) K/mm3 Comprehensive Metabolic Panel 05/06/19 Range/Units 00:14 Sodium 141 (137-145) mmol/L Potassium 5.1 H (3.6-5.0) mmol/L Chloride 105.4 (98-107) mmol/L Carbon Dioxide 24 (22-30) mmol/L BUN 62 H (7-17) mg/dL Creatinine 2.2 H (0.7-1.2) mg/dL Glucose 173 H (65-100) mg/dL Calcium 9.9 (8.4-10.2) mg/dL AST 15 (5-40) units/L ALT 9 (7-56) units/L Alkaline Phosphatase 56 (35-129) units/L Total Protein 7.6 (6.3-8.2) g/dL Albumin 3.7 L (3.9-5) g/dL - Imaging and Cardiology Echo: report reviewed (05/06/19: EF 40-45%, restrictive LV diastolic filling pattern, mod to severe dilation of RA, mild to mod dilation of RV, severe MR, moderate TR, RVSP of 61 mmHg.) EKG interpretations Pacemaker: normal ventrical sensing Assessment and Plan Ms. Ricketts is a 74 y/o female admitted with SOB. Presentation consistent with acute on chronic HFrEF and possible COPD exacerbation/pulmonary hypertension. Mild troponin elevation likely secondary to demand ischemia, now downtrending. Continue diuresis and other cardiac management. The patient has been seen in conjunction with Dr. Kiser, who agrees with the assessment and plan. - Patient Problems (1) Acute respiratory failure Current Visit: Yes Status: Acute (2) Acute on chronic HFrEF (heart failure with reduced ejection fraction) Current Visit: Yes Status: Acute (3) COPD (chronic obstructive pulmonary disease) Current Visit: Yes Status: Acute Qualifiers: COPD type: COPD with acute exacerbation Qualified Code(s): J44.1 - Chronic obstructive pulmonary disease with (acute) exacerbation (4) Hypertension Current Visit: Yes Status: Chronic (5) Pacemaker Current Visit: Yes Status: Chronic (6) Diabetes Current Visit: Yes Status: Chronic (7) CKD (chronic kidney disease) Current Visit: Yes Status: Chronic (8) CAD (coronary artery disease) Current Visit: Yes Status: Chronic (9) Hx of CABG Current Visit: Yes Status: Chronic (10) NICKIE on CPAP Current Visit: Yes Status: Chronic (11) Hypothyroidism Current Visit: Yes Status: Chronic (12) GERD (gastroesophageal reflux disease) Current Visit: Yes Status: Chronic (13) Gout Current Visit: Yes Status: Chronic (14) H/O: CVA (cerebrovascular accident) Current Visit: Yes Status: Chronic (15) Elevated troponin Current Visit: Yes Status: Acute (16) Pulmonary hypertension Current Visit: Yes Status: Chronic
[2019-05-06] MEDS: BUDESONIDE 0.5 MG/2 ML NEBU IH SCH ×2 (14:28→22:04)
--- NOTE | 2019-05-06 15:12 | Progress Note ---
Assessment and Plan Assessment and plan: 74-year-old female with history of CHF, pacemaker/ICD, CVA, AR, hypertension, diabetes, COPD, gout, hypothyroidism GERD, and HLD was admitted through [facility] ED with worsening shortness of breath and wheezing. --Acute on chronic respiratory failure; Secondary to acute exacerbation of systolic congestive heart failure Oxygen titrate O2 sats to more than 90% Heart failure medications, input output monitoring, supportive care --Acute on chronic systolic congestive heart failure; IV diuresis, input output monitoring, low-sodium diet Fluid restriction, heart failure medications Cardiology evaluation, follow echocardiogram --Acute kidney injury; vasomotor nephropathy Secondary to diuresis, avoid nephrotoxins Monitor renal function, Nephrology evaluation if needed --Non-ST elevation AR; nonspecific Probably secondary to acute on chronic CHF Cardiology following, continue cardiac medications --History of COPD/acute exacerbation Oxygen nebulizers IV steroids, inhalation steroids Supportive care, pulmonary consult if needed --HTN; moderate control Continue current antihypertensives and PRN medications Supportive care --Type II DM; Accu-Chek sliding scale coverage ADA diet and insulin as needed --GERD; on Protonix --Hypothyroidism; continue Synthroid --DVT PPX; Lovenox renal dose --Full CODE STATUS; Patient's condition and treatment plan discussed in detail with patient's son Francis Ashley, Answered all his questions Will monitor closely and adjust management as needed Extended advanced care ,35 minutes History Interval history: Patient seen and examined medical records reviewed Patient was admitted with worsening shortness of breath acute exacerbation of chronic systolic congestive heart failure Patient feels slightly better, continues to have shortness of breath And mild distress, Patient denies any chest pain or palpitations Denies headache dizziness or weakness or numbness Vital signs noted Hospitalist Physical - Constitutional Vitals: Temp Pulse Resp BP Pulse Ox 96.3 F L 74 16 143/77 100 05/06/19 11:13 05/06/19 11:01 05/06/19 10:55 05/06/19 11:01 05/06/19 10:55 General appearance: Present: mild distress, obese - EENT Eyes: Present: PERRL, EOM intact - Neck Neck: Present: supple, normal ROM - Respiratory Respiratory effort: normal Respiratory: bilateral: diminished, negative: rales, rhonchi, wheezing - Cardiovascular Rhythm: regular Heart Sounds: Present: S1 & S2 - Extremities Extremities: no ischemia Extremity abnormal: edema - Abdominal General gastrointestinal: soft, non-tender, non-distended, normal bowel sounds - Integumentary Integumentary: Present: clear, warm - Psychiatric Psychiatric: appropriate mood/affect, cooperative - Neurologic Neurologic: CNII-XII intact, moves all extremities Results - Labs CBC & Chem 7: 05/06/19 00:14 05/06/19 00:14 Labs: Laboratory Last Values WBC 10.9 K/mm3 (4.5-11.0) 05/06/19 00:14 RBC 3.78 M/mm3 (3.65-5.03) 05/06/19 00:14 Hgb 10.8 gm/dl (10.1-14.3) 05/06/19 00:14 Hct 35.0 % (30.3-42.9) 05/06/19 00:14 MCV 93 fl (79-97) 05/06/19 00:14 MCH 29 pg (28-32) 05/06/19 00:14 MCHC 31 % (30-34) 05/06/19 00:14 RDW 18.5 % (13.2-15.2) H 05/06/19 00:14 Plt Count 193 K/mm3 (140-440) 05/06/19 00:14 Lymph % (Auto) 8.3 % (13.4-35.0) L 05/06/19 00:14 [place] % (Auto) 6.0 % (0.0-7.3) 05/06/19 00:14 Eos % (Auto) 1.3 % (0.0-4.3) 05/06/19 00:14 Baso % (Auto) 1.6 % (0.0-1.8) 05/06/19 00:14 Lymph # 0.9 K/mm3 (1.2-5.4) L 05/06/19 00:14 [place] # 0.6 K/mm3 (0.0-0.8) 05/06/19 00:14 Eos # 0.1 K/mm3 (0.0-0.4) 05/06/19 00:14 Baso # 0.2 K/mm3 (0.0-0.1) H 05/06/19 00:14 Seg Neutrophils % 82.8 % (40.0-70.0) H 05/06/19 00:14 Seg Neutrophils # 9.0 K/mm3 (1.8-7.7) H 05/06/19 00:14 PT 14.3 Sec. (12.2-14.9) 05/06/19 00:14 INR 1.10 (0.87-1.13) 05/06/19 00:14 APTT 27.7 Sec. (24.2-36.6) 05/06/19 00:14 POC ABG pH 7.406 (7.35-7.45) 05/06/19 01:12 POC ABG pCO2 39.1 (35-45) 05/06/19 01:12 POC ABG pO2 133 (80-105) H 05/06/19 01:12 POC ABG HCO3 24.6 (22-26 mml/L) 05/06/19 01:12 POC ABG Total CO2 26 (23-27mmol/L) 05/06/19 01:12 POC ABG O2 Sat 99 05/06/19 01:12 POC ABG Base Excess 0 ((-2) - (+3)mmol/L) 05/06/19 01:12 FiO2 35 % 05/06/19 01:12 Sodium 141 mmol/L (137-145) 05/06/19 00:14 Potassium 5.1 mmol/L (3.6-5.0) H 05/06/19 00:14 Chloride 105.4 mmol/L (98-107) 05/06/19 00:14 Carbon Dioxide 24 mmol/L (22-30) 05/06/19 00:14 Anion Gap 17 mmol/L 05/06/19 00:14 BUN 62 mg/dL (7-17) H 05/06/19 00:14 Creatinine 2.2 mg/dL (0.7-1.2) H 05/06/19 00:14 Estimated GFR 22 ml/min 05/06/19 00:14 BUN/Creatinine Ratio 28 % 05/06/19 00:14 Glucose 173 mg/dL (65-100) H 05/06/19 00:14 POC Glucose 271 (70-105) H 05/06/19 12:43 Hemoglobin A1c 7.7 % (4-6) H 05/06/19 13:50 Calcium 9.9 mg/dL (8.4-10.2) 05/06/19 00:14 Magnesium 2.00 mg/dL (1.7-2.3) 05/06/19 00:14 Total Bilirubin 0.50 mg/dL (0.1-1.2) 05/06/19 00:14 AST 15 units/L (5-40) 05/06/19 00:14 ALT 9 units/L (7-56) 05/06/19 00:14 Alkaline Phosphatase 56 units/L (35-129) 05/06/19 00:14 Total Creatine Kinase 55 units/L (30-135) 05/06/19 08:36 CK-MB (CK-2) 2.2 ng/mL (0.0-4.0) 05/06/19 08:36 CK-MB (CK-2) Rel Index 4.0 (0-4) 05/06/19 08:36 Troponin T 0.087 ng/mL (0.00-0.029) H D 05/06/19 08:36 NT-Pro-B Natriuret Pep 50666 pg/mL (0-900) H 05/06/19 00:14 Total Protein 7.6 g/dL (6.3-8.2) 05/06/19 00:14 Albumin 3.7 g/dL (3.9-5) L 05/06/19 00:14 Albumin/Globulin Ratio 0.9 % 05/06/19 00:14 Triglycerides 76 mg/dL (2-149) 05/06/19 00:14 Cholesterol 161 mg/dL (50-199) 05/06/19 00:14 LDL Cholesterol Direct 93 mg/dL (50-130) 05/06/19 00:14 HDL Cholesterol 59 mg/dL (40-59) 05/06/19 00:14 Cholesterol/HDL Ratio 2.72 % 05/06/19 00:14 TSH 0.778 mlU/mL (0.270-4.200) 05/06/19 08:36 Thyroxine (T4) 8.2 ug/dL (4.0-12.0) 05/06/19 08:36 Active Medications - Current Medications Current Medications: Generic Name Dose Route Start Last Admin Trade Name Freq PRN Reason Stop Dose Admin Acetaminophen 650 mg 05/06/19 02:19 Tylenol PO Q4H PRN Pain MILD(1-3)/Fever >100.5/JENKINS Albuterol 2.5 mg 05/06/19 02:19 Proventil IH Q3HRT PRN Shortness Of Breath Albuterol/Ipratropium 1 ampul 05/06/19 04:00 05/06/19 14:29 Duoneb *Not For Prn Use* IH Not Given Q4HRT [facility] Allopurinol 100 mg 05/06/19 10:00 05/06/19 11:01 Zyloprim PO 100 mg QDAY STACE[facility] Administration Atorvastatin Calcium 40 mg 05/06/19 22:00 Lipitor PO QHS [facility] Budesonide 0.5 mg 05/06/19 08:00 05/06/19 14:28 Pulmicort IH 0.5 mg Q12HRT ST[facility] Administration Carvedilol 25 mg 05/06/19 10:00 05/06/19 11:01 Coreg PO 25 mg DAILY STACEY Administration Clopidogrel Bisulfate 75 mg 05/06/19 10:00 05/06/19 11:02 Plavix PO 75 mg QDAY [facility] Administration Dextrose 50 ml 05/06/19 02:19 D50w (25gm) Syringe IV Q30MIN PRN Hypoglycemia Protocol Docusate Sodium 100 mg 05/06/19 10:00 05/06/19 11:03 Colace PO 100 mg BID STACEY Administration Furosemide 40 mg 05/06/19 06:00 05/06/19 05:12 Lasix IV 40 mg BID@0600,1800 [facility] Administration Gabapentin 100 mg 05/06/19 08:00 05/06/19 13:00 Gabapentin PO Not Given TID [facility] Insulin Human Lispro 0 unit 05/06/19 07:30 05/06/19 12:40 Humalog SUB-Q 3 unit ACHS ST[facility] Administration Protocol Levothyroxine Sodium 100 mcg 05/06/19 06:00 05/06/19 05:12 Synthroid PO 100 mcg QAM@0600 [facility] Administration Methylprednisolone Sodium Succinate 60 mg 05/06/19 06:00 05/06/19 13:02 Solu-Medrol IV 60 mg Q8HR [facility] Administration Nitroglycerin 0.4 mg 05/06/19 02:19 Nitrostat SL .Q5MIN PRN Chest Pain Ondansetron HCl 4 mg 05/06/19 02:19 Zofran IV Q8H PRN Nausea And Vomiting Pantoprazole Sodium 40 mg 05/06/19 10:00 05/06/19 11:02 Protonix PO 40 mg DAILY [facility] Administration Sodium Chloride 10 ml 05/06/19 10:00 05/06/19 11:03 Sodium Chloride Flush Syringe 10 Ml IV 10 ml BID [facility] Administration Sodium Chloride 10 ml 05/06/19 02:19 Sodium Chloride Flush Syringe 10 Ml IV PRN PRN LINE FLUSH
--- NOTE | 2019-05-06 15:50 | Consultation ---
History of Present Illness - Reason for Consult Consult date: 05/06/19 acute renal failure, hyperkalemia - History of Present Illness The patient is a 74 YO AAF with history significant for Obesity, HTN, HLD, CKD stage 3, HFrEF, COPD, CAD s/p CABG in 1996, NICKIE on CPAP, PPM in July 2018, h/o CVA and hypothyroidism who presented to [facility] with shortness of breath of 3 days duration with worsening symptom of one day duration. She is visiting from [place], [place]. Pt also reports wheezing, feeling tired, decreased appetite and poor PO intake. She denies CP, N, V, D, abd pain, leg swelling, PND, Orthopnea, dizziness, dysuria or hematuria. Labs significant for Creat 2.2, BUN 62, K 5.1 and Troponins mildly elevated to 0.112 and 0.087. CXR with no acute process. Nephrology was consulted for further evaluation. Past History Past Medical History: acute ME, CAD, COPD, diabetes, GERD, heart failure, hypertension, hyperlipidemia, hypothyroidism, stroke, other (Gout) Past Surgical History: Other (pacemaker/ICD) Social history: lives with family (lives in [place] visiting with family in [place]; former smoker) Family history: no significant family history Medications and Allergies Allergies Allergy/AdvReac Type Severity Reaction Status Date / Time Penicillins Allergy Unknown Verified 05/05/19 23:49 Home Medications Medication Instructions Recorded Confirmed Last Taken Type AtorvaSTATin [Lipitor] 40 mg PO QHS 05/06/19 05/06/19 Unknown History Budesonide/Formoterol Fumarate 2 puff IH BID 05/06/19 05/06/19 Unknown History [Symbicort 160-4.5 Mcg Inhaler] Bumetanide 2.5 mg PO BID 05/06/19 05/06/19 Unknown History Clopidogrel [Plavix] 75 mg PO QDAY 05/06/19 05/06/19 Unknown History Fluticasone/Vilanterol [Breo 1 puff IH DAILY 05/06/19 05/06/19 Unknown History Ellipta 200-25 Mcg INH] Gabapentin [Neurontin] 100 mg PO TID 05/06/19 05/06/19 Unknown History Insulin Aspart (Nf) [NovoLOG 100 5 units SUB-Q TID 05/06/19 05/06/19 Unknown History UNITS/ML VIAL] Ipratropium/Albuter (Nf) 1 puff IH Q8HR 05/06/19 05/06/19 Unknown History [Combivent Inhaler] Levothyroxine [Synthroid] 100 mcg PO QAM 05/06/19 05/06/19 Unknown History Nystatin [Nystop Powder] 1 applicatio TP BID 05/06/19 05/06/19 Unknown History PANTOPRAZOLE SODIUM (nf) [Protonix 40 mg PO DAILY 05/06/19 05/06/19 Unknown History GRANULES] Potassium Chloride 20 meq PO DAILY 05/06/19 05/06/19 Unknown History Sacubitril/Valsartan [Entresto 1 tab PO BID 05/06/19 05/06/19 Unknown History 49-51 mg] allopurinoL [Zyloprim] 100 mg PO QDAY 05/06/19 05/06/19 Unknown History carvediloL [Coreg] 25 mg PO DAILY 05/06/19 05/06/19 Unknown History Active Meds: Active Medications Acetaminophen (Tylenol) 650 mg PO Q4H PRN PRN Reason: Pain MILD(1-3)/Fever >100.5/JENKINS Albuterol (Proventil) 2.5 mg IH Q3HRT PRN PRN Reason: Shortness Of Breath Albuterol/Ipratropium (Duoneb *Not For Prn Use*) 1 ampul IH Q4HRT [facility] Last Admin: 05/06/19 14:29 Dose: Not Given Documented by: Allopurinol (Zyloprim) 100 mg PO QDAY [facility] Last Admin: 05/06/19 11:01 Dose: 100 mg Documented by: Atorvastatin Calcium (Lipitor) 40 mg PO QHS [facility] Budesonide (Pulmicort) 0.5 mg IH Q12HRT [facility] Last Admin: 05/06/19 14:28 Dose: 0.5 mg Documented by: Carvedilol (Coreg) 25 mg PO DAILY [facility] Last Admin: 05/06/19 11:01 Dose: 25 mg Documented by: Clopidogrel Bisulfate (Plavix) 75 mg PO QDAY [facility] Last Admin: 05/06/19 11:02 Dose: 75 mg Documented by: Dextrose (D50w (25gm) Syringe) 50 ml IV Q30MIN PRN; Protocol PRN Reason: Hypoglycemia Docusate Sodium (Colace) 100 mg PO BID [facility] Last Admin: 05/06/19 11:03 Dose: 100 mg Documented by: Enoxaparin Sodium (Enoxaparin) 30 mg SUB-Q QDAY [facility] Furosemide (Lasix) 40 mg IV BID@0600,1800 [facility] Last Admin: 05/06/19 05:12 Dose: 40 mg Documented by: Gabapentin (Gabapentin) 100 mg PO TID [facility] Last Admin: 05/06/19 13:00 Dose: Not Given Documented by: Insulin Human Lispro (Humalog) 0 unit SUB-Q ACHS [facility]; Protocol Last Admin: 05/06/19 12:40 Dose: 3 unit Documented by: Levothyroxine Sodium (Synthroid) 100 mcg PO QAM@0600 [facility] Last Admin: 05/06/19 05:12 Dose: 100 mcg Documented by: Methylprednisolone Sodium Succinate (Solu-Medrol) 60 mg IV Q8HR [facility] Last Admin: 05/06/19 13:02 Dose: 60 mg Documented by: Nitroglycerin (Nitrostat) 0.4 mg SL .Q5MIN PRN PRN Reason: Chest Pain Ondansetron HCl (Zofran) 4 mg IV Q8H PRN PRN Reason: Nausea And Vomiting Pantoprazole Sodium (Protonix) 40 mg PO DAILY [facility] Last Admin: 05/06/19 11:02 Dose: 40 mg Documented by: Sodium Chloride (Sodium Chloride Flush Syringe 10 Ml) 10 ml IV BID [facility] Last Admin: 05/06/19 11:03 Dose: 10 ml Documented by: Sodium Chloride (Sodium Chloride Flush Syringe 10 Ml) 10 ml IV PRN PRN PRN Reason: LINE FLUSH Review of Systems Constitutional: anorexia, fatigue, weakness, malaise, poor appetite, no weight loss, no weight gain, no fever, no chills Ears, nose, mouth and throat: no epistaxis Breasts: deferred Cardiovascular: shortness of breath, dyspnea on exertion, high blood pressure, decreased exercise tolerance, no chest pain, no orthopnea, no palpitations, no edema, no syncope, no lightheadedness, no leg edema Respiratory: shortness of breath, dyspnea on exertion, wheezing, sleep apnea, no cough, no excessive sputum, no hemoptysis, no home oxygen Gastrointestinal: no abdominal pain, no nausea, no vomiting, no diarrhea, no melena Genitourinary Female: no dysuria, no hematuria Rectal: no bleeding Musculoskeletal: no morning stiffness, no muscle weakness, no muscle cramps Integumentary: no rash, no redness, no sores, no wounds, no jaundice Neurological: no seizures, no syncope, no convulsions, no aphasia, no change in speech, no change in mentation, no confusion Exam - Vital Signs Vital signs: Vital Signs Resp 10 L 05/05/19 23:38 - General Appearance General appearance: well-developed, well-nourished, appears stated age, obese, other (respiratory distress noted) EENT: ATNC, PERRL, mucous membranes dry, vision intact, hearing diminished Neck: Present: neck supple Respiratory: Ronchi Heart: regular, S1S2, no murmurs Gastrointestinal: Present: normoactive bowel sounds. Absent: tenderness, distended Integumentary: no rash, warm and dry Neurologic: no focal deficit, no asterixis, alert and oriented x3 Musculoskeletal: Present: other (no edema) Results - Lab Results 05/07/19 06:31 05/07/19 06:31 Most recent lab results Calcium 9.9 mg/dL (8.4-10.2) 05/06/19 00:14 Magnesium 2.00 mg/dL (1.7-2.3) 05/06/19 00:14 - Image Kidney/bladder ultrasound: report reviewed Assessment and Plan 1. Acute kidney injury: Likley vasomotor BRIANA superimposed on CKD stage 3. Renal US negative for hydronephrosis. Urine studies ordered. Monitor renal function. Renal prognosis is guarded. Avoid nephrotoxic agents. Meds dosage based on GFR. 2. FEN: Hyperkalemia, Kayexalate and Insulin-dextrose ordered. Metabolic acidosis, monitor. Monitor lytes. 3. Acute hypoxic respiratory failure: Likely secondary to COPD exacerbation. Continue supplemental O2, Steroids and bronchodilators. 4. NSTEMI / elevated troponin: Followed by Cards. 5. H/o HFrEF. 6. DM type 2 with hyperglycemia. 7. Hypertension.
[2019-05-06 17:26] LABS: Calcium 9.5 mg/dL (8.4-10.2)
--- NOTE | 2019-05-06 17:30 | Ultrasound Report ---
Renal ultrasound. 05/06/2019. HISTORY: Acute renal failure. FINDINGS: Right kidney measures 9.8 cm. Cortex measures 1.4 cm. Left kidney measures 10.3 cm. Cortex measures 1.6 cm. Cortical echogenicity is normal. Negative for mass or obstruction. The bladder contains moderate urine. IMPRESSION: Normal renal ultrasound. Signer Name: pAollo Rollins MD Signed: 05/06/2019 5:26 PM Workstation Name: [id number]
[2019-05-06] MEDS ORDERED: INSULIN REGULAR, HUMAN 100 UNITS/1 ML IV ONE (19:49)
[2019-05-06] MEDS ORDERED: DEXTROSE 50% IN WATER (25GM) 50 ML SYRINGE IV ONE (19:49)
[2019-05-06] MEDS ORDERED: SODIUM POLYSTYRENE 15 GM/60 ML ORAL LIQD PO ONE (19:49)
[2019-05-07] MEDS: IPRATROPIUM/ALBUTEROL SULFATE 3 ML AMPUL.NEB IH SCH ×4 (04:13→21:31)
[2019-05-07] MEDS: methylPREDNISolone Sod Succinate 125 MG/2 ML INJ IV SCH ×3 (05:37→21:56)
[2019-05-07] MEDS: LEVOTHYROXINE 100 MCG TAB PO SCH (05:37)
[2019-05-07 07:35] LABS: Basophils % (Auto) 0.3 % (0.0-1.8); Hematocrit 33.1 % (30.3-42.9); Hemoglobin 10.4 gm/dl (10.1-14.3); Lymphocytes # (Auto) 0.4 K/mm3 (1.2-5.4); Lymphocytes % (Auto) 9.1 % (13.4-35.0); Mean Corpuscular HGB Conc 32 % (30-34); Mean Corpuscular Volume 91 fl (79-97); Monocytes # (Auto) 0.2 K/mm3 (0.0-0.8); Monocytes % (Auto) 4.7 % (0.0-7.3); Platelet Count 178 K/mm3 (140-440); Red Blood Count 3.63 M/mm3 (3.65-5.03); Red Cell Distribution Width 19.1 % (13.2-15.2)
[2019-05-07 07:49] LABS: Calcium 8.9 mg/dL (8.4-10.2)
[2019-05-07] MEDS: BUDESONIDE 0.5 MG/2 ML NEBU IH SCH ×2 (08:26→21:30)
[2019-05-07] MEDS: GABAPENTIN 100 MG CAP PO SCH ×3 (09:03→21:55)
[2019-05-07] MEDS: INSULIN LISPRO 100 UNIT/ML SUB-Q SCH ×3 (09:03→17:38)
[2019-05-07] MEDS: CLOPIDOGREL 75 MG TAB PO SCH (09:04)
[2019-05-07] MEDS: carvediloL 25 MG TAB PO SCH (09:04)
[2019-05-07] MEDS: DOCUSATE SODIUM 100 MG CAP PO SCH ×2 (09:04→21:55)
[2019-05-07] MEDS: PANTOPRAZOLE 40 MG TAB PO SCH (09:04)
[2019-05-07] MEDS: ENOXAPARIN 30 MG/0.3 ML INJ SUB-Q SCH (09:05)
[2019-05-07] MEDS: allopurinoL 100 MG TAB PO SCH (09:07)
[2019-05-07] MEDS ORDERED: FUROSEMIDE 40 MG/4 ML INJ IV SCH (10:00)
[2019-05-07] MEDS ORDERED: INSULIN NPH/REGULAR 70/30 INJ SUB-Q ONE (10:00)
--- NOTE | 2019-05-07 11:07 | Progress Note ---
Assessment and Plan 1. Acute kidney injury: Likely vasomotor BRIANA superimposed on CKD stage 3. Renal US negative for hydronephrosis. Creatinine trending upwards likely due to diuresis. Monitor renal function. Renal prognosis is guarded. Avoid nephrotoxic agents. Meds dosage based on GFR. 2. FEN: Hyperkalemia, improved. Metabolic acidosis, monitor. Monitor lytes. 3. Acute hypoxic respiratory failure: Likely secondary to COPD exacerbation +/- decompensated CHF. Continue supplemental O2, Steroids and bronchodilators. 4. NSTEMI / elevated troponin: Followed by Cards. 5. H/o HFrEF. 6. DM type 2 with hyperglycemia. 7. Hypertension. Examination: General appearance: well-developed, well-nourished, appears stated age, obese, mild respiratory distress HEENT: ATNC, KETAN, vision intact, hearing diminished Neck: neck supple, trachea midline Respiratory: faint bibasal rales heard Heart: regular, S1S2, no murmurs Gastrointestinal: soft, obese, normoactive bowel sounds, not tender Integumentary: no rash, warm and dry Neurologic: no focal deficit, no asterixis, alert and oriented x3 Ext: no edema Subjective Date of service: 05/07/19 Interval history: Patient was seen and examined at the bedside. Doing ok. Objective - Vital Signs Vital signs: Vital Signs - 12hr 05/06/19 05/06/19 05/06/19 23:19 23:49 23:54 Temperature 97.4 F L Pulse Rate 71 Pulse Rate [ 76 Anterior Throughout] Respiratory 18 22 Rate Respiratory 22 Rate [Anterior Throughout] Blood Pressure 132/68 O2 Sat by Pulse 98 100 Oximetry 05/07/19 05/07/19 05/07/19 03:00 03:58 04:14 Temperature 98.2 F Pulse Rate 88 70 Pulse Rate [ 78 Anterior Throughout] Respiratory 18 18 Rate Respiratory 22 Rate [Anterior Throughout] Blood Pressure 151/84 O2 Sat by Pulse 99 Oximetry 05/07/19 05/07/19 05/07/19 08:18 08:26 09:04 Temperature 98.0 F Pulse Rate 71 71 Pulse Rate [ 89 Anterior Throughout] Respiratory 18 Rate Respiratory 25 H Rate [Anterior Throughout] Blood Pressure 140/74 140/74 O2 Sat by Pulse 100 Oximetry 05/07/19 09:47 Temperature Pulse Rate Pulse Rate [ Anterior Throughout] Respiratory Rate Respiratory Rate [Anterior Throughout] Blood Pressure O2 Sat by Pulse 97 Oximetry - Lab 05/07/19 06:31 05/07/19 06:31 Most recent lab results Calcium 8.9 mg/dL (8.4-10.2) 05/07/19 06:31 Magnesium 2.00 mg/dL (1.7-2.3) 05/06/19 00:14 Medications & Allergies - Medications Allergies/Adverse Reactions: Allergies Penicillins Allergy (Verified 05/05/19 23:49) Unknown Home Medications: Home Medications Medication Instructions Recorded Confirmed Last Taken Type AtorvaSTATin [Lipitor] 40 mg PO QHS 05/06/19 05/06/19 Unknown History Budesonide/Formoterol Fumarate 2 puff IH BID 05/06/19 05/06/19 Unknown History [Symbicort 160-4.5 Mcg Inhaler] Bumetanide 2.5 mg PO BID 05/06/19 05/06/19 Unknown History Clopidogrel [Plavix] 75 mg PO QDAY 05/06/19 05/06/19 Unknown History Fluticasone/Vilanterol [Breo 1 puff IH DAILY 05/06/19 05/06/19 Unknown History Ellipta 200-25 Mcg INH] Gabapentin [Neurontin] 100 mg PO TID 05/06/19 05/06/19 Unknown History Insulin Aspart (Nf) [NovoLOG 100 5 units SUB-Q TID 05/06/19 05/06/19 Unknown History UNITS/ML VIAL] Ipratropium/Albuter (Nf) 1 puff IH Q8HR 05/06/19 05/06/19 Unknown History [Combivent Inhaler] Levothyroxine [Synthroid] 100 mcg PO QAM 05/06/19 05/06/19 Unknown History Nystatin [Nystop Powder] 1 applicatio TP BID 05/06/19 05/06/19 Unknown History PANTOPRAZOLE SODIUM (nf) [Protonix 40 mg PO DAILY 05/06/19 05/06/19 Unknown History GRANULES] Potassium Chloride 20 meq PO DAILY 05/06/19 05/06/19 Unknown History Sacubitril/Valsartan [Entresto 1 tab PO BID 05/06/19 05/06/19 Unknown History 49-51 mg] allopurinoL [Zyloprim] 100 mg PO QDAY 05/06/19 05/06/19 Unknown History carvediloL [Coreg] 25 mg PO DAILY 05/06/19 05/06/19 Unknown History Active Medications: Generic Name Dose Route Start Last Admin Trade Name Freq PRN Reason Stop Dose Admin Acetaminophen 650 mg 05/06/19 02:19 Tylenol PO Q4H PRN Pain MILD(1-3)/Fever >100.5/JENKINS Albuterol 2.5 mg 05/06/19 02:19 Proventil IH Q3HRT PRN Shortness Of Breath Albuterol/Ipratropium 1 ampul 05/07/19 14:00 Duoneb *Not For Prn Use* IH TIDRT [facility] Allopurinol 100 mg 05/06/19 10:00 05/07/19 09:07 Zyloprim PO 100 mg QDAY [facility] Administration Atorvastatin Calcium 40 mg 05/06/19 22:00 05/06/19 21:42 Lipitor PO 40 mg QHS [facility] Administration Budesonide 0.5 mg 05/06/19 08:00 05/07/19 08:26 Pulmicort IH 0.5 mg Q12HRT [facility] Administration Carvedilol 25 mg 05/06/19 10:00 05/07/19 09:04 Coreg PO 25 mg DAILY [facility] Administration Clopidogrel Bisulfate 75 mg 05/06/19 10:00 05/07/19 09:04 Plavix PO 75 mg QDAY [facility] Administration Dextrose 50 ml 05/06/19 02:19 D50w (25gm) Syringe IV Q30MIN PRN Hypoglycemia Protocol Docusate Sodium 100 mg 05/06/19 10:00 05/07/19 09:04 Colace PO 100 mg BID [facility] Administration Enoxaparin Sodium 30 mg 05/07/19 10:00 05/07/19 09:05 Enoxaparin SUB-Q 30 mg QDAY [facility] Administration Furosemide 40 mg 05/07/19 10:00 05/07/19 09:04 Lasix IV 40 mg DAILY [facility] Administration Gabapentin 100 mg 05/06/19 08:00 05/07/19 09:03 Gabapentin PO 100 mg TID [facility] Administration Insulin Human Isoph/Insulin Regular 10 unit 05/07/19 17:00 Humulin 70/30 SUB-Q BIDDIAB [facility] Insulin Human Lispro 0 unit 05/06/19 07:30 05/07/19 09:03 Humalog SUB-Q 5 unit ACHS [facility] Administration Protocol Levothyroxine Sodium 100 mcg 05/06/19 06:00 05/07/19 05:37 Synthroid PO 100 mcg QAM@0600 [facility] Administration Methylprednisolone Sodium Succinate 60 mg 05/06/19 06:00 05/07/19 05:37 Solu-Medrol IV 60 mg Q8HR [facility] Administration Nitroglycerin 0.4 mg 05/06/19 02:19 Nitrostat SL .Q5MIN PRN Chest Pain Ondansetron HCl 4 mg 05/06/19 02:19 Zofran IV Q8H PRN Nausea And Vomiting Pantoprazole Sodium 40 mg 05/06/19 10:00 05/07/19 09:04 Protonix PO 40 mg DAILY [facility] Administration Sodium Chloride 10 ml 05/06/19 10:00 05/07/19 09:06 Sodium Chloride Flush Syringe 10 Ml IV 10 ml BID [facility] Administration Sodium Chloride 10 ml 05/06/19 02:19 Sodium Chloride Flush Syringe 10 Ml IV PRN PRN LINE FLUSH
--- NOTE | 2019-05-07 11:31 | Progress Note ---
Assessment and Plan Cardiac status is improving. Continue current management. Nephrology recommendations noted. The patient has been seen in conjunction with Dr. Haddad, who agrees with the assessment and plan. - Patient Problems (1) Acute respiratory failure Current Visit: Yes Status: Acute (2) Acute on chronic HFrEF (heart failure with reduced ejection fraction) Current Visit: Yes Status: Acute (3) COPD (chronic obstructive pulmonary disease) Current Visit: Yes Status: Acute Qualifiers: COPD type: COPD with acute exacerbation Qualified Code(s): J44.1 - Chronic obstructive pulmonary disease with (acute) exacerbation (4) Hypertension Current Visit: Yes Status: Chronic (5) Pacemaker Current Visit: Yes Status: Chronic (6) Diabetes Current Visit: Yes Status: Chronic (7) CKD (chronic kidney disease) Current Visit: Yes Status: Chronic (8) CAD (coronary artery disease) Current Visit: Yes Status: Chronic (9) Hx of CABG Current Visit: Yes Status: Chronic (10) NICKIE on CPAP Current Visit: Yes Status: Chronic (11) Hypothyroidism Current Visit: Yes Status: Chronic (12) GERD (gastroesophageal reflux disease) Current Visit: Yes Status: Chronic (13) Gout Current Visit: Yes Status: Chronic (14) H/O: CVA (cerebrovascular accident) Current Visit: Yes Status: Chronic (15) Elevated troponin Current Visit: Yes Status: Acute (16) Pulmonary hypertension Current Visit: Yes Status: Chronic Subjective Date of service: 05/07/19 Interval history: The patient is lying in bed in NAD. She is breathing better. No cardiac complaints. V-paced in 70s on telemetry. Objective Last Vital Signs Temp 98.0 F 05/07/19 08:18 Pulse 71 05/07/19 09:04 Resp 25 H 05/07/19 08:26 BP 140/74 05/07/19 09:04 Pulse Ox 97 05/07/19 09:47 - Physical Examination General: No Apparent Distress HEENT: Positive: PERRL Neck: Positive: neck supple Cardiac: Positive: Reg Rate and Rhythm Lungs: Positive: Rales (right base) Neuro: Positive: Grossly Intact Abdomen: Positive: Unremarkable /Rectal: Other (deferred) Skin: Positive: Clear Musculoskeletal: Normal Range of Motion Extremities: Present: normal - Labs and Meds CBC 05/07/19 Range/Units 06:31 WBC 4.2 L (4.5-11.0) K/mm3 RBC 3.63 L (3.65-5.03) M/mm3 Hgb 10.4 (10.1-14.3) gm/dl Hct 33.1 (30.3-42.9) % Plt Count 178 (140-440) K/mm3 Lymph # 0.4 L (1.2-5.4) K/mm3 [place] # 0.2 (0.0-0.8) K/mm3 Eos # 0.0 (0.0-0.4) K/mm3 Baso # 0.0 (0.0-0.1) K/mm3 Comprehensive Metabolic Panel 05/06/19 05/07/19 Range/Units 16:32 06:31 Sodium 136 L 137 (137-145) mmol/L Potassium 5.6 H 5.0 (3.6-5.0) mmol/L Chloride 99.6 101.0 (98-107) mmol/L Carbon Dioxide 16 L D 16 L (22-30) mmol/L BUN 67 H 72 H (7-17) mg/dL Creatinine 2.3 H 2.6 H (0.7-1.2) mg/dL Glucose 292 H 394 H (65-100) mg/dL Calcium 9.5 8.9 (8.4-10.2) mg/dL - Imaging and Cardiology Echo: report reviewed (05/06/19: EF 40-45%, restrictive LV diastolic filling pattern, mod to severe dilation of RA, mild to mod dilation of RV, severe MR, moderate TR, RVSP of 61 mmHg.) Pacemaker: normal ventrical sensing
--- NOTE | 2019-05-07 13:41 | Progress Note ---
Assessment and Plan Assessment and plan: 74-year-old female with history of CHF, pacemaker/ICD, CVA, [place], hypertension, diabetes, COPD, gout, hypothyroidism GERD, and HLD was admitted through [facility] ED with worsening shortness of breath and wheezing. Patient is receiving heart failure medications as well as nebulizers steroids antibiotics Blood sugars are uncontrolled due to high-dose steroids --Type II DM; uncontrolled Probably secondary to high-dose steroid use Accu-Chek sliding scale coverage ADA diet and Novolin 70/30 15 units twice daily, adjust as needed HbA1c 7.7 --Acute on chronic respiratory failure; Secondary to acute exacerbation of systolic congestive heart failure Oxygen titrate O2 sats to more than 90% Heart failure medications, input output monitoring, supportive care --Acute on chronic systolic congestive heart failure; 40 to 45% EF IV diuresis, input output monitoring, low-sodium diet Fluid restriction, heart failure medications Cardiology following --Acute kidney injury; worsening renal function vasomotor nephropathy due to diuretics avoid nephrotoxins, nephrology following --Non-ST elevation [place]; nonspecific Cardiology following, continue cardiac medications --History of COPD/acute exacerbation Oxygen nebulizers tapering doses IV steroids, inhalation steroids,Supportive care, --HTN; moderate control Continue current antihypertensives and PRN medications Supportive care --GERD; on Protonix --Hypothyroidism; continue Synthroid --DVT PPX; Lovenox renal dose --Full CODE STATUS; Monitor closely and adjust management as needed Possible discharge in 1 to 2 days if stable Disposition; discharge when medically stable and cleared by consultants History Interval history: Patient seen and examined medical records reviewed Patient feels slightly better still has shortness of breath Blood sugars are uncontrolled probably secondary to steroid use Patient is alert awake oriented Not in acute distress Vital signs reviewed Hospitalist Physical - Constitutional Vitals: Temp Pulse Resp BP Pulse Ox 98.0 F 75 18 140/74 97 05/07/19 08:18 05/07/19 11:00 05/07/19 12:10 05/07/19 09:04 05/07/19 12:10 General appearance: Present: mild distress, well-nourished, obese - EENT Eyes: Present: PERRL, EOM intact - Neck Neck: Present: supple, normal ROM - Respiratory Respiratory effort: normal Respiratory: bilateral: diminished, rhonchi, negative: rales, wheezing - Cardiovascular Rhythm: regular Heart Sounds: Present: S1 & S2 - Extremities Extremities: no ischemia, No edema - Abdominal General gastrointestinal: soft, non-tender, non-distended, normal bowel sounds - Integumentary Integumentary: Present: clear, warm - Psychiatric Psychiatric: appropriate mood/affect, cooperative - Neurologic Neurologic: CNII-XII intact, moves all extremities Results - Labs CBC & Chem 7: 05/07/19 06:31 05/07/19 06:31 Labs: Laboratory Last Values WBC 4.2 K/mm3 (4.5-11.0) L 05/07/19 06:31 RBC 3.63 M/mm3 (3.65-5.03) L 05/07/19 06:31 Hgb 10.4 gm/dl (10.1-14.3) 05/07/19 06:31 Hct 33.1 % (30.3-42.9) 05/07/19 06:31 MCV 91 fl (79-97) 05/07/19 06:31 MCH 29 pg (28-32) 05/07/19 06:31 MCHC 32 % (30-34) 05/07/19 06:31 RDW 19.1 % (13.2-15.2) H 05/07/19 06:31 Plt Count 178 K/mm3 (140-440) 05/07/19 06:31 Lymph % (Auto) 9.1 % (13.4-35.0) L 05/07/19 06:31 [place] % (Auto) 4.7 % (0.0-7.3) 05/07/19 06:31 Eos % (Auto) 0.0 % (0.0-4.3) 05/07/19 06:31 Baso % (Auto) 0.3 % (0.0-1.8) 05/07/19 06:31 Lymph # 0.4 K/mm3 (1.2-5.4) L 05/07/19 06:31 [place] # 0.2 K/mm3 (0.0-0.8) 05/07/19 06:31 Eos # 0.0 K/mm3 (0.0-0.4) 05/07/19 06:31 Baso # 0.0 K/mm3 (0.0-0.1) 05/07/19 06:31 Seg Neutrophils % 85.9 % (40.0-70.0) H 05/07/19 06:31 Seg Neutrophils # 3.6 K/mm3 (1.8-7.7) 05/07/19 06:31 PT 14.3 Sec. (12.2-14.9) 05/06/19 00:14 INR 1.10 (0.87-1.13) 05/06/19 00:14 APTT 27.7 Sec. (24.2-36.6) 05/06/19 00:14 POC ABG pH 7.406 (7.35-7.45) 05/06/19 01:12 POC ABG pCO2 39.1 (35-45) 05/06/19 01:12 POC ABG pO2 133 (80-105) H 05/06/19 01:12 POC ABG HCO3 24.6 (22-26 mml/L) 05/06/19 01:12 POC ABG Total CO2 26 (23-27mmol/L) 05/06/19 01:12 POC ABG O2 Sat 99 05/06/19 01:12 POC ABG Base Excess 0 ((-2) - (+3)mmol/L) 05/06/19 01:12 FiO2 35 % 05/06/19 01:12 Sodium 137 mmol/L (137-145) 05/07/19 06:31 Potassium 5.0 mmol/L (3.6-5.0) 05/07/19 06:31 Chloride 101.0 mmol/L (98-107) 05/07/19 06:31 Carbon Dioxide 16 mmol/L (22-30) L 05/07/19 06:31 Anion Gap 25 mmol/L 05/07/19 06:31 BUN 72 mg/dL (7-17) H 05/07/19 06:31 Creatinine 2.6 mg/dL (0.7-1.2) H 05/07/19 06:31 Estimated GFR 22 ml/min 05/07/19 06:31 BUN/Creatinine Ratio 28 % 05/07/19 06:31 Glucose 394 mg/dL (65-100) H 05/07/19 06:31 POC Glucose 458 (70-105) H 05/07/19 11:53 Hemoglobin A1c 7.7 % (4-6) H 05/06/19 13:50 Calcium 8.9 mg/dL (8.4-10.2) 05/07/19 06:31 Magnesium 2.00 mg/dL (1.7-2.3) 05/06/19 00:14 Total Bilirubin 0.50 mg/dL (0.1-1.2) 05/06/19 00:14 AST 15 units/L (5-40) 05/06/19 00:14 ALT 9 units/L (7-56) 05/06/19 00:14 Alkaline Phosphatase 56 units/L (35-129) 05/06/19 00:14 Total Creatine Kinase 55 units/L (30-135) 05/06/19 08:36 CK-MB (CK-2) 2.2 ng/mL (0.0-4.0) 05/06/19 08:36 CK-MB (CK-2) Rel Index 4.0 (0-4) 05/06/19 08:36 Troponin T 0.087 ng/mL (0.00-0.029) H D 05/06/19 08:36 NT-Pro-B Natriuret Pep 72097 pg/mL (0-900) H 05/06/19 00:14 Total Protein 7.6 g/dL (6.3-8.2) 05/06/19 00:14 Albumin 3.7 g/dL (3.9-5) L 05/06/19 00:14 Albumin/Globulin Ratio 0.9 % 05/06/19 00:14 Triglycerides 76 mg/dL (2-149) 05/06/19 00:14 Cholesterol 161 mg/dL (50-199) 05/06/19 00:14 LDL Cholesterol Direct 93 mg/dL (50-130) 05/06/19 00:14 HDL Cholesterol 59 mg/dL (40-59) 05/06/19 00:14 Cholesterol/HDL Ratio 2.72 % 05/06/19 00:14 TSH 0.778 mlU/mL (0.270-4.200) 05/06/19 08:36 Thyroxine (T4) 8.2 ug/dL (4.0-12.0) 05/06/19 08:36 Active Medications - Current Medications Current Medications: Generic Name Dose Route Start Last Admin Trade Name Freq PRN Reason Stop Dose Admin Acetaminophen 650 mg 05/06/19 02:19 Tylenol PO Q4H PRN Pain MILD(1-3)/Fever >100.5/JENKINS Albuterol 2.5 mg 05/06/19 02:19 Proventil IH Q3HRT PRN Shortness Of Breath Albuterol/Ipratropium 1 ampul 05/07/19 14:00 Duoneb *Not For Prn Use* IH TIDRT STACEY Allopurinol 100 mg 05/06/19 10:00 05/07/19 09:07 Zyloprim PO 100 mg QDAY STACEY Administration Atorvastatin Calcium 40 mg 05/06/19 22:00 05/06/19 21:42 Lipitor PO 40 mg QHS STACEY Administration Budesonide 0.5 mg 05/06/19 08:00 05/07/19 08:26 Pulmicort IH 0.5 mg Q12HRT STACEY Administration Bumetanide 2.5 mg 05/07/19 22:00 Bumex PO BID STACEY Carvedilol 25 mg 05/06/19 10:00 05/07/19 09:04 Coreg PO 25 mg DAILY STACEY Administration Clopidogrel Bisulfate 75 mg 05/06/19 10:00 05/07/19 09:04 Plavix PO 75 mg QDAY STACEY Administration Dextrose 50 ml 05/06/19 02:19 D50w (25gm) Syringe IV Q30MIN PRN Hypoglycemia Protocol Docusate Sodium 100 mg 05/06/19 10:00 05/07/19 09:04 Colace PO 100 mg BID STACEY Administration Enoxaparin Sodium 30 mg 05/07/19 10:00 05/07/19 09:05 Enoxaparin SUB-Q 30 mg QDAY [facility] Administration Furosemide 40 mg 05/07/19 10:00 05/07/19 09:04 Lasix IV 40 mg DAILY STACEY Administration Gabapentin 100 mg 05/06/19 08:00 05/07/19 09:03 Gabapentin PO 100 mg TID STACEY Administration Insulin Human Isoph/Insulin Regular 18 unit 05/07/19 17:00 Humulin 70/30 SUB-Q BIDDIAB STACEY Insulin Human Lispro 0 unit 05/06/19 07:30 05/07/19 12:51 Humalog SUB-Q 8 unit ACHS STACEY Administration Protocol Levothyroxine Sodium 100 mcg 05/06/19 06:00 05/07/19 05:37 Synthroid PO 100 mcg QAM@0600 STACEY Administration Methylprednisolone Sodium Succinate 40 mg 05/07/19 13:32 Solu-Medrol IV Q8HR [facility] Miscellaneous Medication 1 puff 05/08/19 10:00 Fluticasone/Vilanterol [Breo Ellipta 200-25 Mcg Inh] IH DAILY [facility] Nitroglycerin 0.4 mg 05/06/19 02:19 Nitrostat SL .Q5MIN PRN Chest Pain Ondansetron HCl 4 mg 05/06/19 02:19 Zofran IV Q8H PRN Nausea And Vomiting Pantoprazole Sodium 40 mg 05/06/19 10:00 05/07/19 09:04 Protonix PO 40 mg DAILY STACEY Administration Sodium Chloride 10 ml 05/06/19 10:00 05/07/19 09:06 Sodium Chloride Flush Syringe 10 Ml IV 10 ml BID STACEY Administration Sodium Chloride 10 ml 05/06/19 02:19 Sodium Chloride Flush Syringe 10 Ml IV PRN PRN LINE FLUSH
[2019-05-07] MEDS ORDERED: INSULIN NPH/REGULAR 70/30 INJ SUB-Q SCH (17:00)
[2019-05-07 17:19] LABS: Bilirubin,Urine NEG (Negative); Blood,Urine NEG (Negative); Color,Urine Yellow (Yellow); Mucus,Urine FEW /HPF; Urobilinogen,Urine < 2.0 mg/dL (<2.0)
[2019-05-07 17:26] LABS: Creatinine,Urine 151.1 mg/dL (0.1-20.0); Protein/Creatinine Ratio,Urine 0.24
[2019-05-07] MEDS: INSULIN NPH/REGULAR 70/30 INJ SUB-Q SCH (17:38)
[2019-05-07] MEDS ORDERED: BUDESONIDE 0.5 MG/2 ML NEBU IH SCH (20:00)
[2019-05-07] MEDS: ARFORMOTEROL 15 MCG/2 ML NEBU IH SCH (21:30)
[2019-05-07] MEDS ORDERED: BUMETANIDE 1 MG TAB PO SCH (22:00)
[2019-05-08] MEDS: INSULIN LISPRO 100 UNIT/ML SUB-Q SCH ×5 (00:53→22:15)
[2019-05-08] MEDS: LEVOTHYROXINE 100 MCG TAB PO SCH (06:25)
[2019-05-08] MEDS: methylPREDNISolone Sod Succinate 125 MG/2 ML INJ IV SCH ×3 (06:26→22:12)
[2019-05-08] MEDS: GABAPENTIN 100 MG CAP PO SCH ×3 (08:33→21:10)
[2019-05-08] MEDS: INSULIN NPH/REGULAR 70/30 INJ SUB-Q SCH ×2 (08:33→18:02)
[2019-05-08] MEDS: ARFORMOTEROL 15 MCG/2 ML NEBU IH SCH ×2 (08:48→20:51)
[2019-05-08] MEDS: BUDESONIDE 0.5 MG/2 ML NEBU IH SCH ×2 (08:48→20:51)
[2019-05-08] MEDS: IPRATROPIUM/ALBUTEROL SULFATE 3 ML AMPUL.NEB IH SCH ×3 (08:49→20:51)
--- NOTE | 2019-05-08 08:57 | Progress Note ---
Assessment and Plan 1. Acute kidney injury: Likely vasomotor BRIANA superimposed on CKD stage 3. Renal US negative for hydronephrosis. Creatinine trending upwards likely due to diuresis. Hold Lasix. Monitor renal function. Renal prognosis is guarded. Avoid nephrotoxic agents. Meds dosage based on GFR. 2. FEN: Hyperkalemia, improved. Metabolic acidosis, monitor. Monitor lytes. 3. Acute hypoxic respiratory failure: Likely secondary to COPD exacerbation +/- decompensated CHF. Continue supplemental O2, Steroids and bronchodilators. 4. NSTEMI / elevated troponin: Followed by Cards. 5. H/o HFrEF. 6. DM type 2 with hyperglycemia. 7. Hypertension. Examination: General appearance: well-developed, well-nourished, appears stated age, obese, mild respiratory distress, dry mucus membrane HEENT: ATNC, KETAN, vision intact, hearing diminished Neck: neck supple, trachea midline Respiratory: rhonchi heard Heart: regular, S1S2, no murmurs Gastrointestinal: soft, obese, normoactive bowel sounds, not tender Integumentary: no rash, warm and dry Neurologic: no focal deficit, no asterixis, alert and oriented x3 Ext: no edema Subjective Date of service: 05/08/19 Interval history: Patient was seen and examined at the bedside. Appetite remains low. Objective - Vital Signs Vital signs: Vital Signs - 12hr 05/07/19 05/07/19 05/07/19 21:31 21:44 23:32 Temperature Pulse Rate Pulse Rate [ 75 Anterior Throughout] Respiratory Rate Respiratory 15 Rate [Anterior Throughout] Blood Pressure O2 Sat by Pulse 100 100 Oximetry 05/08/19 05/08/19 05/08/19 01:29 03:00 04:13 Temperature 98.2 F 98.9 F Pulse Rate 74 74 74 Pulse Rate [ Anterior Throughout] Respiratory 18 18 Rate Respiratory Rate [Anterior Throughout] Blood Pressure 140/86 151/91 O2 Sat by Pulse 100 100 Oximetry 05/08/19 05/08/19 08:52 08:53 Temperature Pulse Rate Pulse Rate [ 93 H Anterior Throughout] Respiratory Rate Respiratory 18 Rate [Anterior Throughout] Blood Pressure O2 Sat by Pulse 100 Oximetry - Lab 05/08/19 13:13 05/08/19 13:13 Most recent lab results Calcium 8.9 mg/dL (8.4-10.2) 05/07/19 06:31 Magnesium 2.00 mg/dL (1.7-2.3) 05/06/19 00:14 Urine Creatinine 151.1 mg/dL (0.1-20.0) H 05/07/19 17:04 Urine Sodium 13 mmol/L 05/07/19 17:04 Urine Total Protein 36 mg/dL (5-11.8) H 05/07/19 17:04 Medications & Allergies - Medications Allergies/Adverse Reactions: Allergies Penicillins Allergy (Verified 05/05/19 23:49) Unknown Home Medications: Home Medications Medication Instructions Recorded Confirmed Last Taken Type AtorvaSTATin [Lipitor] 40 mg PO QHS 05/06/19 05/06/19 Unknown History Budesonide/Formoterol Fumarate 2 puff IH BID 05/06/19 05/06/19 Unknown History [Symbicort 160-4.5 Mcg Inhaler] Bumetanide 2.5 mg PO BID 05/06/19 05/06/19 Unknown History Clopidogrel [Plavix] 75 mg PO QDAY 05/06/19 05/06/19 Unknown History Fluticasone/Vilanterol [Breo 1 puff IH DAILY 05/06/19 05/06/19 Unknown History Ellipta 200-25 Mcg INH] Gabapentin [Neurontin] 100 mg PO TID 05/06/19 05/06/19 Unknown History Insulin Aspart (Nf) [NovoLOG 100 5 units SUB-Q TID 05/06/19 05/06/19 Unknown History UNITS/ML VIAL] Ipratropium/Albuter (Nf) 1 puff IH Q8HR 05/06/19 05/06/19 Unknown History [Combivent Inhaler] Levothyroxine [Synthroid] 100 mcg PO QAM 05/06/19 05/06/19 Unknown History Nystatin [Nystop Powder] 1 applicatio TP BID 05/06/19 05/06/19 Unknown History PANTOPRAZOLE SODIUM (nf) [Protonix 40 mg PO DAILY 05/06/19 05/06/19 Unknown History GRANULES] Potassium Chloride 20 meq PO DAILY 05/06/19 05/06/19 Unknown History Sacubitril/Valsartan [Entresto 1 tab PO BID 05/06/19 05/06/19 Unknown History 49-51 mg] allopurinoL [Zyloprim] 100 mg PO QDAY 05/06/19 05/06/19 Unknown History carvediloL [Coreg] 25 mg PO DAILY 05/06/19 05/06/19 Unknown History Active Medications: Generic Name Dose Route Start Last Admin Trade Name Freq PRN Reason Stop Dose Admin Acetaminophen 650 mg 05/06/19 02:19 Tylenol PO Q4H PRN Pain MILD(1-3)/Fever >100.5/JENKINS Albuterol 2.5 mg 05/06/19 02:19 Proventil IH Q3HRT PRN Shortness Of Breath Albuterol/Ipratropium 1 ampul 05/07/19 14:00 05/08/19 08:49 Duoneb *Not For Prn Use* IH 1 ampul TIDRT STACEY Administration Allopurinol 100 mg 05/06/19 10:00 05/07/19 09:07 Zyloprim PO 100 mg QDAY STACEY Administration Arformoterol Tartrate 15 mcg 05/07/19 20:00 05/08/19 08:48 Brovana Nebu IH 15 mcg Q12HRT STACEY Administration Atorvastatin Calcium 40 mg 05/06/19 22:00 05/07/19 21:55 Lipitor PO 40 mg QHS STACEY Administration Budesonide 0.5 mg 05/06/19 08:00 05/08/19 08:48 Pulmicort IH 0.5 mg Q12HRT STACEY Administration Bumetanide 2.5 mg 05/07/19 22:00 05/07/19 21:55 Bumex PO 2.5 mg BID STACEY Administration Carvedilol 25 mg 05/06/19 10:00 05/07/19 09:04 Coreg PO 25 mg DAILY STACEY Administration Clopidogrel Bisulfate 75 mg 05/06/19 10:00 05/07/19 09:04 Plavix PO 75 mg QDAY STACEY Administration Dextrose 50 ml 05/06/19 02:19 D50w (25gm) Syringe IV Q30MIN PRN Hypoglycemia Protocol Docusate Sodium 100 mg 05/06/19 10:00 05/07/19 21:55 Colace PO 100 mg BID STACEY Administration Enoxaparin Sodium 30 mg 05/07/19 10:00 05/07/19 09:05 Enoxaparin SUB-Q 30 mg QDAY STACEY Administration Furosemide 40 mg 05/07/19 10:00 05/07/19 09:04 Lasix IV 40 mg DAILY STACEY Administration Gabapentin 100 mg 05/06/19 08:00 05/08/19 08:33 Gabapentin PO 100 mg TID STACEY Administration Insulin Human Isoph/Insulin Regular 18 unit 05/07/19 17:00 05/08/19 08:33 Humulin 70/30 SUB-Q 18 unit BIDDIAB STACEY Administration Insulin Human Lispro 0 unit 05/06/19 07:30 05/08/19 08:34 Humalog SUB-Q 2 unit ACHS STACEY Administration Protocol Levothyroxine Sodium 100 mcg 05/06/19 06:00 05/08/19 06:25 Synthroid PO 100 mcg QAM@0600 STACEY Administration Methylprednisolone Sodium Succinate 40 mg 05/07/19 13:32 05/08/19 06:26 Solu-Medrol IV 40 mg Q8HR STACEY Administration Nitroglycerin 0.4 mg 05/06/19 02:19 Nitrostat SL .Q5MIN PRN Chest Pain Ondansetron HCl 4 mg 05/06/19 02:19 Zofran IV Q8H PRN Nausea And Vomiting Pantoprazole Sodium 40 mg 05/06/19 10:00 05/07/19 09:04 Protonix PO 40 mg DAILY STACEY Administration Sodium Chloride 10 ml 05/06/19 10:00 05/07/19 22:14 Sodium Chloride Flush Syringe 10 Ml IV 10 ml BID STACEY Administration Sodium Chloride 10 ml 05/06/19 02:19 Sodium Chloride Flush Syringe 10 Ml IV PRN PRN LINE FLUSH
[2019-05-08] MEDS ORDERED: VILANTEROL IH SCH (10:00)
[2019-05-08] MEDS ORDERED: FLUTICASONE IH SCH (10:00)
--- NOTE | 2019-05-08 10:03 | Progress Note ---
Assessment and Plan Cardiac status is improving. D/w nephrology - agree with holding diuretics d/t worsening renal insufficiency. Issues with breathing appear driven by COPD exacerbation. Continue other cardiac management. The patient has been seen in conjunction with Dr. Raya, who agrees with the assessment and plan. - Patient Problems (1) Acute respiratory failure Current Visit: Yes Status: Acute (2) Acute on chronic HFrEF (heart failure with reduced ejection fraction) Current Visit: Yes Status: Acute (3) COPD (chronic obstructive pulmonary disease) Current Visit: Yes Status: Acute Qualifiers: COPD type: COPD with acute exacerbation Qualified Code(s): J44.1 - Chronic obstructive pulmonary disease with (acute) exacerbation (4) Hypertension Current Visit: Yes Status: Chronic (5) Pacemaker Current Visit: Yes Status: Chronic (6) Diabetes Current Visit: Yes Status: Chronic (7) CKD (chronic kidney disease) Current Visit: Yes Status: Chronic (8) CAD (coronary artery disease) Current Visit: Yes Status: Chronic (9) Hx of CABG Current Visit: Yes Status: Chronic (10) NICKIE on CPAP Current Visit: Yes Status: Chronic (11) Hypothyroidism Current Visit: Yes Status: Chronic (12) GERD (gastroesophageal reflux disease) Current Visit: Yes Status: Chronic (13) Gout Current Visit: Yes Status: Chronic (14) H/O: CVA (cerebrovascular accident) Current Visit: Yes Status: Chronic (15) Elevated troponin Current Visit: Yes Status: Acute (16) Pulmonary hypertension Current Visit: Yes Status: Chronic Subjective Date of service: 05/08/19 Interval history: The patient is lying in bed in [facility]. Her breathing is better. No lab results for today, but Cr has progressively worsened over the past several days. V-pa james in 70s on telemetry. Objective Last Vital Signs Temp 98.4 F 05/08/19 09:05 Pulse 81 05/08/19 09:05 Resp 20 05/08/19 09:05 BP 154/84 05/08/19 09:05 Pulse Ox 98 05/08/19 09:05 - Physical Examination General: No Apparent Distress HEENT: Positive: PERRL Neck: Positive: neck supple Cardiac: Positive: Reg Rate and Rhythm Lungs: Positive: Decreased Breath Sounds Neuro: Positive: Grossly Intact Abdomen: Positive: Unremarkable /Rectal: Other (deferred) Skin: Positive: Clear Musculoskeletal: Normal Range of Motion Extremities: Present: normal - Imaging and Cardiology Echo: report reviewed (05/06/19: EF 40-45%, restrictive LV diastolic filling pattern, mod to severe dilation of RA, mild to mod dilation of RV, severe MR, moderate TR, RVSP of 61 mmHg.) Pacemaker: normal ventrical sensing
[2019-05-08] MEDS: allopurinoL 100 MG TAB PO SCH (10:40)
[2019-05-08] MEDS: CLOPIDOGREL 75 MG TAB PO SCH (10:40)
[2019-05-08] MEDS: DOCUSATE SODIUM 100 MG CAP PO SCH ×2 (10:40→22:14)
[2019-05-08] MEDS: ENOXAPARIN 30 MG/0.3 ML INJ SUB-Q SCH (10:40)
[2019-05-08] MEDS: PANTOPRAZOLE 40 MG TAB PO SCH (10:40)
[2019-05-08] MEDS: carvediloL 25 MG TAB PO SCH (10:41)
[2019-05-08 14:18] LABS: Calcium 8.8 mg/dL (8.4-10.2)
[2019-05-08 14:22] LABS: Hematocrit 34.8 % (30.3-42.9); Hemoglobin 10.8 gm/dl (10.1-14.3); Mean Corpuscular HGB Conc 31 % (30-34); Mean Corpuscular Volume 92 fl (79-97); Platelet Count 179 K/mm3 (140-440); Red Blood Count 3.77 M/mm3 (3.65-5.03); Red Cell Distribution Width 19.1 % (13.2-15.2)
--- NOTE | 2019-05-08 14:39 | Progress Note ---
Assessment and Plan /-Acute on chronic systolic congestive heart failure; 40 to 45% EF s/p IV diuresis, input output monitoring, low-sodium diet Fluid restriction, heart failure medications Cardiology following, hold diuresis for now for declining renal function /Acute kidney injury; worsening renal function vasomotor nephropathy due to diuretics avoid nephrotoxins, stop diuretics, nephrology following /Type II DM; uncontrolled Probably secondary to high-dose steroid use Accu-Chek sliding scale coverage ADA diet and increase Novolin 70/30 18 units twice daily, adjust as needed HbA1c 7.7 /-Acute on chronic respiratory failure; Secondary to acute exacerbation of systolic congestive heart failure Oxygen titrate O2 sats to more than 90% Heart failure medications, input output monitoring, supportive care /-Non-ST elevation [place]; nonspecific Cardiology following, continue cardiac medications /History of COPD/acute exacerbation Oxygen nebulizers tapering doses IV steroids, inhalation steroids,Supportive care, /-HTN; moderate control Continue current antihypertensives and PRN medications Supportive care /-GERD; on Protonix /-Hypothyroidism; continue Synthroid /DVT PPX; Lovenox renal dose /-Full CODE STATUS; Monitor closely and adjust management as needed Possible discharge in 1 to 2 days if stable Disposition; discharge when medically stable and cleared by consultants Brief history: 74-year-old female with history of CHF, pacemaker/ICD, CVA, [place], hypertension, diabetes, COPD, gout, hypothyroidism GERD, and HLD was admitted through [facility] ED with worsening shortness of breath and wheezing. Patient is receiving heart failure medications as well as nebulizers steroids antibiotics, Blood sugars are uncontrolled due to high-dose steroids, renal function also declined. Subjective Date of service: 05/08/19 Interval history: Patient seen and examined. Medical records and medication list reviewed. No acute event overnight noted by the RN. Patient complains of difficulty breathing and generalized weakness. Patient is tolerating diet. States that she's feeling short of breath event from getting up from the bed to the restroom Discussed plan of care at bedside with patient and her granddaughter. Objective - Exam Narrative Exam: General appearance: Present: mild distress, well-nourished, obese - EENT Eyes: Present: PERRL, EOM intact - Neck Neck: Present: supple, normal ROM - Respiratory Respiratory effort: normal Respiratory: bilateral: diminished, rhonchi, negative: rales, wheezing - Cardiovascular Rhythm: regular Heart Sounds: Present: S1 & S2 - Extremities Extremities: no ischemia, No edema - Abdominal General gastrointestinal: soft, non-tender, non-distended, normal bowel sounds - Integumentary Integumentary: Present: clear, warm - Psychiatric Psychiatric: appropriate mood/affect, cooperative - Neurologic Neurologic: CNII-XII intact, moves all extremities - Constitutional Vitals: Vital Signs - 12hr 05/08/19 05/08/19 05/08/19 03:00 04:13 08:52 Temperature 98.9 F Pulse Rate 74 74 Pulse Rate [ 93 H Anterior Throughout] Respiratory 18 Rate Respiratory 18 Rate [Anterior Throughout] Blood Pressure 151/91 O2 Sat by Pulse 100 Oximetry 05/08/19 05/08/19 05/08/19 08:53 09:05 11:00 Temperature 98.4 F Pulse Rate 81 81 Pulse Rate [ Anterior Throughout] Respiratory 20 Rate Respiratory Rate [Anterior Throughout] Blood Pressure 154/84 O2 Sat by Pulse 100 98 Oximetry 05/08/19 12:00 Temperature Pulse Rate Pulse Rate [ Anterior Throughout] Respiratory 28 H Rate Respiratory Rate [Anterior Throughout] Blood Pressure O2 Sat by Pulse 97 Oximetry - Labs CBC & Chem 7: 05/08/19 13:13 05/11/19 05:34 Labs: Abnormal lab results 05/07/19 05/07/19 05/07/19 Range/Units 17:02 17:04 23:23 RDW (13.2-15.2) % Sodium (137-145) mmol/L Chloride (98-107) mmol/L Carbon Dioxide (22-30) mmol/L BUN (7-17) mg/dL Creatinine (0.7-1.2) mg/dL Glucose (65-100) mg/dL POC Glucose 309 H 183 H (70-105) Magnesium (1.7-2.3) mg/dL Urine Creatinine 151.1 H (0.1-20.0) mg/dL Urine Total Protein 36 H (5-11.8) mg/dL 05/08/19 05/08/19 05/08/19 Range/Units 08:20 12:29 13:13 RDW 19.1 H (13.2-15.2) % Sodium (137-145) mmol/L Chloride (98-107) mmol/L Carbon Dioxide (22-30) mmol/L BUN (7-17) mg/dL Creatinine (0.7-1.2) mg/dL Glucose (65-100) mg/dL POC Glucose 178 H 200 H (70-105) Magnesium (1.7-2.3) mg/dL Urine Creatinine (0.1-20.0) mg/dL Urine Total Protein (5-11.8) mg/dL 05/08/19 Range/Units 13:13 RDW (13.2-15.2) % Sodium 136 L (137-145) mmol/L Chloride 97.4 L (98-107) mmol/L Carbon Dioxide 18 L (22-30) mmol/L BUN 91 H (7-17) mg/dL Creatinine 3.2 H (0.7-1.2) mg/dL Glucose 228 H (65-100) mg/dL POC Glucose (70-105) Magnesium 2.50 H (1.7-2.3) mg/dL Urine Creatinine (0.1-20.0) mg/dL Urine Total Protein (5-11.8) mg/dL
[2019-05-08 15:03] LABS: Total Cells Counted 100
[2019-05-08 15:04] LABS: Basophils % (Manual) 0 % (0.0-1.8); Eosinophils % (Manual) 0 % (0.0-4.3); Macrocytosis 1+; Monocytes % (Manual) 0 % (0.0-7.3); Platelet Estimate Consistent w Auto
[2019-05-09] MEDS: methylPREDNISolone Sod Succinate 125 MG/2 ML INJ IV SCH ×3 (05:43→22:24)
[2019-05-09] MEDS: LEVOTHYROXINE 100 MCG TAB PO SCH (05:43)
[2019-05-09 06:48] LABS: Calcium 8.8 mg/dL (8.4-10.2)
[2019-05-09] MEDS: ARFORMOTEROL 15 MCG/2 ML NEBU IH SCH ×2 (07:37→20:44)
[2019-05-09] MEDS: BUDESONIDE 0.5 MG/2 ML NEBU IH SCH ×2 (07:37→20:44)
[2019-05-09] MEDS: IPRATROPIUM/ALBUTEROL SULFATE 3 ML AMPUL.NEB IH SCH ×3 (07:37→20:44)
[2019-05-09] MEDS: INSULIN NPH/REGULAR 70/30 INJ SUB-Q SCH ×2 (08:23→18:06)
[2019-05-09] MEDS: INSULIN LISPRO 100 UNIT/ML SUB-Q SCH ×4 (08:23→22:24)
[2019-05-09] MEDS: GABAPENTIN 100 MG CAP PO SCH ×3 (08:23→21:00)
[2019-05-09] MEDS: PANTOPRAZOLE 40 MG TAB PO SCH (10:51)
[2019-05-09] MEDS: allopurinoL 100 MG TAB PO SCH (10:51)
[2019-05-09] MEDS: DOCUSATE SODIUM 100 MG CAP PO SCH ×2 (10:51→22:20)
[2019-05-09] MEDS: CLOPIDOGREL 75 MG TAB PO SCH (10:51)
[2019-05-09] MEDS: ENOXAPARIN 30 MG/0.3 ML INJ SUB-Q SCH (10:52)
[2019-05-09] MEDS: carvediloL 25 MG TAB PO SCH (10:52)
--- NOTE | 2019-05-09 11:49 | Progress Note ---
Assessment and Plan 1. Acute kidney injury: Likely vasomotor BRIANA superimposed on CKD stage 3. Renal US negative for hydronephrosis. Creatinine trending upwards likely due to diuresis. Gentle IV fluids. Monitor renal function. Renal prognosis is guarded. Avoid nephrotoxic agents. Meds dosage based on GFR. 2. FEN: Hyperkalemia, improved. Metabolic acidosis, monitor. Monitor lytes. 3. Acute hypoxic respiratory failure: Likely secondary to COPD exacerbation +/- decompensated CHF. Continue supplemental O2, Steroids and bronchodilators. 4. NSTEMI / elevated troponin: Followed by Cards. 5. H/o HFrEF. 6. DM type 2 with hyperglycemia. 7. Hypertension. Examination: General appearance: well-developed, well-nourished, appears stated age, obese, mild respiratory distress, dry mucus membrane HEENT: ATNC, KETAN, vision intact, hearing diminished Neck: neck supple, trachea midline Respiratory: rhonchi heard Heart: regular, S1S2, no murmurs Gastrointestinal: soft, obese, normoactive bowel sounds, not tender Integumentary: no rash, warm and dry Neurologic: no focal deficit, no asterixis, alert and oriented x3 Ext: no edema Subjective Date of service: 05/09/19 Interval history: Patient was seen and examined at the bedside. Appetite remains low. Objective - Vital Signs Vital signs: Vital Signs - 12hr 05/09/19 05/09/19 05/09/19 00:05 00:31 03:00 Temperature 97.6 F Pulse Rate 84 84 Pulse Rate [ Anterior Throughout] Respiratory 20 Rate Respiratory Rate [Anterior Throughout] Blood Pressure 132/61 O2 Sat by Pulse 100 Oximetry 05/09/19 05/09/19 05/09/19 04:31 04:35 07:39 Temperature 97.8 F Pulse Rate 84 Pulse Rate [ 89 Anterior Throughout] Respiratory 20 Rate Respiratory 18 Rate [Anterior Throughout] Blood Pressure 136/73 O2 Sat by Pulse 100 Oximetry 05/09/19 05/09/19 05/09/19 07:40 08:04 10:00 Temperature 98.6 F Pulse Rate 87 Pulse Rate [ Anterior Throughout] Respiratory 22 28 H Rate Respiratory Rate [Anterior Throughout] Blood Pressure 120/69 O2 Sat by Pulse 100 99 95 Oximetry 05/09/19 11:00 Temperature Pulse Rate 81 Pulse Rate [ Anterior Throughout] Respiratory Rate Respiratory Rate [Anterior Throughout] Blood Pressure O2 Sat by Pulse Oximetry - Lab 05/08/19 13:13 05/09/19 05:35 Most recent lab results Calcium 8.8 mg/dL (8.4-10.2) 05/09/19 05:35 Magnesium 2.50 mg/dL (1.7-2.3) H 05/08/19 13:13 Urine Creatinine 151.1 mg/dL (0.1-20.0) H 05/07/19 17:04 Urine Sodium 13 mmol/L 05/07/19 17:04 Urine Total Protein 36 mg/dL (5-11.8) H 05/07/19 17:04 Medications & Allergies - Medications Allergies/Adverse Reactions: Allergies Penicillins Allergy (Verified 05/05/19 23:49) Unknown Home Medications: Home Medications Medication Instructions Recorded Confirmed Last Taken Type AtorvaSTATin [Lipitor] 40 mg PO QHS 05/06/19 05/06/19 Unknown History Budesonide/Formoterol Fumarate 2 puff IH BID 05/06/19 05/06/19 Unknown History [Symbicort 160-4.5 Mcg Inhaler] Bumetanide 2.5 mg PO BID 05/06/19 05/06/19 Unknown History Clopidogrel [Plavix] 75 mg PO QDAY 05/06/19 05/06/19 Unknown History Fluticasone/Vilanterol [Breo 1 puff IH DAILY 05/06/19 05/06/19 Unknown History Ellipta 200-25 Mcg INH] Gabapentin [Neurontin] 100 mg PO TID 05/06/19 05/06/19 Unknown History Insulin Aspart (Nf) [NovoLOG 100 5 units SUB-Q TID 05/06/19 05/06/19 Unknown History UNITS/ML VIAL] Ipratropium/Albuter (Nf) 1 puff IH Q8HR 05/06/19 05/06/19 Unknown History [Combivent Inhaler] Levothyroxine [Synthroid] 100 mcg PO QAM 05/06/19 05/06/19 Unknown History Nystatin [Nystop Powder] 1 applicatio TP BID 05/06/19 05/06/19 Unknown History PANTOPRAZOLE SODIUM (nf) [Protonix 40 mg PO DAILY 05/06/19 05/06/19 Unknown History GRANULES] Potassium Chloride 20 meq PO DAILY 05/06/19 05/06/19 Unknown History Sacubitril/Valsartan [Entresto 1 tab PO BID 05/06/19 05/06/19 Unknown History 49-51 mg] allopurinoL [Zyloprim] 100 mg PO QDAY 05/06/19 05/06/19 Unknown History carvediloL [Coreg] 25 mg PO DAILY 05/06/19 05/06/19 Unknown History Active Medications: Generic Name Dose Route Start Last Admin Trade Name Freq PRN Reason Stop Dose Admin Acetaminophen 650 mg 05/06/19 02:19 Tylenol PO Q4H PRN Pain MILD(1-3)/Fever >100.5/JENKINS Albuterol 2.5 mg 05/06/19 02:19 Proventil IH Q3HRT PRN Shortness Of Breath Albuterol/Ipratropium 1 ampul 05/07/19 14:00 05/09/19 07:37 Duoneb *Not For Prn Use* IH Not Given TIDRT STACEY Allopurinol 100 mg 05/06/19 10:00 05/09/19 10:51 Zyloprim PO 100 mg QDAY STACEY Administration Arformoterol Tartrate 15 mcg 05/07/19 20:00 05/09/19 07:37 Brovana Nebu IH 15 mcg Q12HRT STACEY Administration Atorvastatin Calcium 40 mg 05/06/19 22:00 05/08/19 22:16 Lipitor PO 40 mg QHS STACEY Administration Budesonide 0.5 mg 05/06/19 08:00 05/09/19 07:37 Pulmicort IH 0.5 mg Q12HRT STACEY Administration Carvedilol 25 mg 05/06/19 10:00 05/09/19 10:52 Coreg PO 25 mg DAILY STACEY Administration Clopidogrel Bisulfate 75 mg 05/06/19 10:00 05/09/19 10:51 Plavix PO 75 mg QDAY STACEY Administration Dextrose 50 ml 05/06/19 02:19 D50w (25gm) Syringe IV Q30MIN PRN Hypoglycemia Protocol Docusate Sodium 100 mg 05/06/19 10:00 05/09/19 10:51 Colace PO 100 mg BID STACEY Administration Enoxaparin Sodium 30 mg 05/07/19 10:00 05/09/19 10:52 Enoxaparin SUB-Q 30 mg QDAY STACEY Administration Gabapentin 100 mg 05/06/19 08:00 05/09/19 08:23 Gabapentin PO 100 mg TID STACEY Administration Insulin Human Isoph/Insulin Regular 18 unit 05/07/19 17:00 05/09/19 08:23 Humulin 70/30 SUB-Q 18 unit BIDDIAB STACEY Administration Insulin Human Lispro 0 unit 05/06/19 07:30 05/09/19 08:23 Humalog SUB-Q 3 unit ACHS STACEY Administration Protocol Levothyroxine Sodium 100 mcg 05/06/19 06:00 05/09/19 05:43 Synthroid PO 100 mcg QAM@0600 STACEY Administration Methylprednisolone Sodium Succinate 40 mg 05/07/19 13:32 05/09/19 05:43 Solu-Medrol IV 40 mg Q8HR STACEY Administration Nitroglycerin 0.4 mg 05/06/19 02:19 Nitrostat SL .Q5MIN PRN Chest Pain Ondansetron HCl 4 mg 05/06/19 02:19 Zofran IV Q8H PRN Nausea And Vomiting Pantoprazole Sodium 40 mg 05/06/19 10:00 05/09/19 10:51 Protonix PO 40 mg DAILY STACEY Administration Sodium Chloride 10 ml 05/06/19 10:00 05/08/19 22:17 Sodium Chloride Flush Syringe 10 Ml IV 10 ml BID STACEY Administration Sodium Chloride 10 ml 05/06/19 02:19 Sodium Chloride Flush Syringe 10 Ml IV PRN PRN LINE FLUSH
--- NOTE | 2019-05-09 14:50 | Progress Note ---
Assessment and Plan Cardiac status is improving. D/w nephrology - agree with holding diuretics d/t worsening renal insufficiency. Issues with breathing appear driven by COPD exacerbation. Continue other cardiac management. 05/09/2019>Discussed with agree with gentle hydration,watching for decompensation of chf. Subjective Date of service: 05/09/19 Interval history: Still slightly SOB,no chest pain.Gives hx. of hospitalization in [place] few weeks ago for chf. Objective Vital Signs Temp Pulse Pulse Pulse Pulse Resp Resp 05/09/19 13:16 92 H 18 05/09/19 12:09 96.6 F L 97 H 20 05/09/19 11:00 81 05/09/19 10:00 28 H 05/09/19 08:04 98.6 F 87 22 05/09/19 07:40 05/09/19 07:39 89 18 05/09/19 04:35 97.8 F 05/09/19 04:31 84 20 05/09/19 03:00 84 05/09/19 00:31 97.6 F 05/09/19 00:05 84 20 05/08/19 22:00 78 78 20 05/08/19 20:55 05/08/19 20:54 87 20 05/08/19 20:11 97.9 F 05/08/19 20:10 72 18 05/08/19 19:00 72 05/08/19 16:55 98.0 F 79 20 BP Pulse Ox 05/09/19 13:16 05/09/19 12:09 127/66 97 05/09/19 11:00 05/09/19 10:00 95 05/09/19 08:04 120/69 99 05/09/19 07:40 100 05/09/19 07:39 05/09/19 04:35 05/09/19 04:31 136/73 100 05/09/19 03:00 05/09/19 00:31 05/09/19 00:05 132/61 100 05/08/19 22:00 97 05/08/19 20:55 98 05/08/19 20:54 05/08/19 20:11 05/08/19 20:10 111/67 100 05/08/19 19:00 05/08/19 16:55 153/78 100 - Physical Examination General: No Apparent Distress HEENT: Positive: PERRL Neck: Positive: neck supple Cardiac: Positive: Regular Rhythm Lungs: Positive: Decreased Breath Sounds Neuro: Positive: Grossly Intact Abdomen: Positive: Unremarkable /Rectal: Other (deferred) Skin: Positive: Clear Musculoskeletal: Normal Range of Motion Extremities: Present: normal. Absent: edema - Labs and Meds Comprehensive Metabolic Panel 05/09/19 Range/Units 05:35 Sodium 137 (137-145) mmol/L Potassium 4.5 (3.6-5.0) mmol/L Chloride 96.5 L (98-107) mmol/L Carbon Dioxide 22 (22-30) mmol/L BUN 95 H (7-17) mg/dL Creatinine 3.4 H (0.7-1.2) mg/dL Glucose 171 H (65-100) mg/dL Calcium 8.8 (8.4-10.2) mg/dL - Imaging and Cardiology Echo: report reviewed (05/06/19: EF 40-45%, restrictive LV diastolic filling pattern, mod to severe dilation of RA, mild to mod dilation of RV, severe MR, moderate TR, RVSP of 61 mmHg.) Pacemaker: normal ventrical sensing
--- NOTE | 2019-05-09 15:25 | Progress Note ---
Assessment and Plan /-Acute on chronic systolic congestive heart failure; 40 to 45% EF s/p IV diuresis, input output monitoring, low-sodium diet Fluid restriction, heart failure medications Cardiology following, held diuresis for now for declining renal function /Acute kidney injury; worsening renal function vasomotor nephropathy due to diuretics avoid nephrotoxins, stoped diuretics, nephrology following Monitor BMP daily /Type II DM; uncontrolled Probably secondary to high-dose steroid use Accu-Chek sliding scale coverage ADA diet and increased Novolin 70/30 18 units twice daily, adjust as needed HbA1c 7.7 /-Acute on chronic respiratory failure; Secondary to acute exacerbation of systolic congestive heart failure Oxygen titrate O2 sats to more than 90% Heart failure medications, input output monitoring, supportive care /-Non-ST elevation [place]; nonspecific Cardiology following, continue cardiac medications /History of COPD/acute exacerbation Oxygen nebulizers tapering doses IV steroids, inhalation steroids,Supportive care, /-HTN; moderate control Continue current antihypertensives and PRN medications Supportive care /-GERD; on Protonix /-Hypothyroidism; continue Synthroid /DVT PPX; Lovenox renal dose /-Full CODE STATUS; Monitor closely and adjust management as needed Disposition; discharge when medically stable and cleared by nephrology. Consulted PT Brief history: 74-year-old female with history of CHF, pacemaker/ICD, CVA, [place], hypertension, diabetes, COPD, gout, hypothyroidism GERD, and HLD was admitted through [facility] ED with worsening shortness of breath and wheezing. Patient is receiving heart failure medications as well as nebulizers steroids antibiotics, Blood sugars are uncontrolled due to high-dose steroids, renal function also declined. Subjective Date of service: 05/09/19 Interval history: Patient seen and examined. Medical records and medication list reviewed. No acute event overnight noted by the RN. Patient complains of difficulty breathing and generalized weakness. Patient is tolerating diet. States that she's feeling short of breath with minimal exertion Discussed plan of care at bedside with patient and her granddaughter. Objective - Exam Narrative Exam: General appearance: Present: mild distress, well-nourished, obese - EENT Eyes: Present: PERRL, EOM intact - Neck Neck: Present: supple, normal ROM - Respiratory Respiratory effort: normal Respiratory: bilateral: diminished, rhonchi, negative: rales, wheezing - Cardiovascular Rhythm: regular Heart Sounds: Present: S1 & S2 - Extremities Extremities: no ischemia, No edema - Abdominal General gastrointestinal: soft, non-tender, non-distended, normal bowel sounds - Integumentary Integumentary: Present: clear, warm - Psychiatric Psychiatric: appropriate mood/affect, cooperative - Neurologic Neurologic: CNII-XII intact, moves all extremities - Constitutional Vitals: Vital Signs - 12hr 05/09/19 05/09/19 05/09/19 04:31 04:35 07:39 Temperature 97.8 F Pulse Rate 84 Pulse Rate [ 89 Anterior Throughout] Respiratory 20 Rate Respiratory 18 Rate [Anterior Throughout] Blood Pressure 136/73 O2 Sat by Pulse 100 Oximetry 05/09/19 05/09/19 05/09/19 07:40 08:04 10:00 Temperature 98.6 F Pulse Rate 87 Pulse Rate [ Anterior Throughout] Respiratory 22 28 H Rate Respiratory Rate [Anterior Throughout] Blood Pressure 120/69 O2 Sat by Pulse 100 99 95 Oximetry 05/09/19 05/09/19 05/09/19 11:00 12:09 13:16 Temperature 96.6 F L Pulse Rate 81 97 H Pulse Rate [ 92 H Anterior Throughout] Respiratory 20 Rate Respiratory 18 Rate [Anterior Throughout] Blood Pressure 127/66 O2 Sat by Pulse 97 Oximetry - Labs CBC & Chem 7: 05/08/19 13:13 05/11/19 05:34 Labs: Abnormal lab results 05/08/19 05/08/19 05/09/19 Range/Units 17:09 21:28 05:35 Chloride 96.5 L (98-107) mmol/L BUN 95 H (7-17) mg/dL Creatinine 3.4 H (0.7-1.2) mg/dL Glucose 171 H (65-100) mg/dL POC Glucose 221 H 218 H (70-105) 05/09/19 05/09/19 Range/Units 08:21 12:18 Chloride (98-107) mmol/L BUN (7-17) mg/dL Creatinine (0.7-1.2) mg/dL Glucose (65-100) mg/dL POC Glucose 224 H 179 H (70-105)
[2019-05-09] MEDS ORDERED: SODIUM CHLORIDE 0.9% 1000 ML 1,000 ML IV SCH (15:30)
[2019-05-09] MEDS: SODIUM CHLORIDE 0.9% 1000 ML 1,000 ML IV SCH (15:42)
[2019-05-10] MEDS: LEVOTHYROXINE 100 MCG TAB PO SCH (06:52)
[2019-05-10] MEDS: methylPREDNISolone Sod Succinate 125 MG/2 ML INJ IV SCH ×3 (06:52→21:24)
[2019-05-10] MEDS: BUDESONIDE 0.5 MG/2 ML NEBU IH SCH ×2 (08:16→20:52)
[2019-05-10] MEDS: IPRATROPIUM/ALBUTEROL SULFATE 3 ML AMPUL.NEB IH SCH ×3 (08:16→20:52)
[2019-05-10] MEDS: ARFORMOTEROL 15 MCG/2 ML NEBU IH SCH ×2 (08:17→20:52)
[2019-05-10 08:26] LABS: Calcium 8.1 mg/dL (8.4-10.2)
[2019-05-10] MEDS: INSULIN LISPRO 100 UNIT/ML SUB-Q SCH ×3 (08:41→21:52)
[2019-05-10] MEDS: GABAPENTIN 100 MG CAP PO SCH ×3 (08:43→21:24)
[2019-05-10] MEDS: INSULIN NPH/REGULAR 70/30 INJ SUB-Q SCH ×2 (08:43→18:41)
[2019-05-10] MEDS: carvediloL 25 MG TAB PO SCH (10:50)
[2019-05-10] MEDS: CLOPIDOGREL 75 MG TAB PO SCH (10:51)
[2019-05-10] MEDS: PANTOPRAZOLE 40 MG TAB PO SCH (10:51)
[2019-05-10] MEDS: allopurinoL 100 MG TAB PO SCH (10:51)
[2019-05-10] MEDS: ENOXAPARIN 30 MG/0.3 ML INJ SUB-Q SCH (10:51)
[2019-05-10] MEDS: DOCUSATE SODIUM 100 MG CAP PO SCH ×2 (10:51→21:24)
--- NOTE | 2019-05-10 13:19 | Progress Note ---
Assessment and Plan 1. Acute kidney injury: Likely vasomotor BRIANA superimposed on CKD stage 3. Renal US negative for hydronephrosis. Creatinine level is slightly better today. Gentle IV fluids. Monitor renal function. Renal prognosis is guarded. Avoid nephrotoxic agents. Meds dosage based on GFR. 2. FEN: Hyperkalemia, improved. Metabolic acidosis, monitor. Monitor lytes. 3. Acute hypoxic respiratory failure: Likely secondary to COPD exacerbation. Continue supplemental O2, Steroids and bronchodilators. 4. NSTEMI / elevated troponin: Followed by Cards. 5. H/o HFrEF. 6. DM type 2 with hyperglycemia. 7. Hypertension. Examination: General appearance: well-developed, well-nourished, appears stated age, obese, no distress, dry mucus membrane HEENT: ATNC, KETAN, vision intact, hearing diminished Neck: neck supple, trachea midline Respiratory: ctab Heart: regular, S1S2, no murmurs Gastrointestinal: soft, obese, normoactive bowel sounds, not tender Integumentary: no rash, warm and dry Neurologic: no focal deficit, no asterixis, alert and oriented x3 Ext: no edema Subjective Date of service: 05/10/19 Interval history: Patient was seen and examined at the bedside. Appetite remains low. Objective - Vital Signs Vital signs: Vital Signs - 12hr 05/10/19 05/10/19 05/10/19 03:00 05:29 05:37 Temperature 97.8 F Pulse Rate 78 76 Pulse Rate [ Anterior Throughout] Respiratory 20 Rate Respiratory Rate [Anterior Throughout] Blood Pressure 117/59 O2 Sat by Pulse 96 Oximetry 05/10/19 05/10/19 05/10/19 08:00 08:19 08:34 Temperature 98.8 F Pulse Rate 74 Pulse Rate [ 72 Anterior Throughout] Respiratory 18 Rate Respiratory 74 H Rate [Anterior Throughout] Blood Pressure 150/64 O2 Sat by Pulse 98 100 Oximetry 05/10/19 05/10/19 10:50 10:57 Temperature Pulse Rate 74 71 Pulse Rate [ Anterior Throughout] Respiratory 22 Rate Respiratory Rate [Anterior Throughout] Blood Pressure 133/69 133/69 O2 Sat by Pulse 89 Oximetry - Lab 05/08/19 13:13 05/10/19 07:35 Most recent lab results Calcium 8.1 mg/dL (8.4-10.2) L 05/10/19 07:35 Magnesium 2.50 mg/dL (1.7-2.3) H 05/08/19 13:13 Urine Creatinine 151.1 mg/dL (0.1-20.0) H 05/07/19 17:04 Urine Sodium 13 mmol/L 05/07/19 17:04 Urine Total Protein 36 mg/dL (5-11.8) H 05/07/19 17:04 Medications & Allergies - Medications Allergies/Adverse Reactions: Allergies Penicillins Allergy (Verified 05/05/19 23:49) Unknown Home Medications: Home Medications Medication Instructions Recorded Confirmed Last Taken Type AtorvaSTATin [Lipitor] 40 mg PO QHS 05/06/19 05/06/19 Unknown History Budesonide/Formoterol Fumarate 2 puff IH BID 05/06/19 05/06/19 Unknown History [Symbicort 160-4.5 Mcg Inhaler] Bumetanide 2.5 mg PO BID 05/06/19 05/06/19 Unknown History Clopidogrel [Plavix] 75 mg PO QDAY 05/06/19 05/06/19 Unknown History Fluticasone/Vilanterol [Breo 1 puff IH DAILY 05/06/19 05/06/19 Unknown History Ellipta 200-25 Mcg INH] Gabapentin [Neurontin] 100 mg PO TID 05/06/19 05/06/19 Unknown History Insulin Aspart (Nf) [NovoLOG 100 5 units SUB-Q TID 05/06/19 05/06/19 Unknown History UNITS/ML VIAL] Ipratropium/Albuter (Nf) 1 puff IH Q8HR 05/06/19 05/06/19 Unknown History [Combivent Inhaler] Levothyroxine [Synthroid] 100 mcg PO QAM 05/06/19 05/06/19 Unknown History Nystatin [Nystop Powder] 1 applicatio TP BID 05/06/19 05/06/19 Unknown History PANTOPRAZOLE SODIUM (nf) [Protonix 40 mg PO DAILY 05/06/19 05/06/19 Unknown History GRANULES] Potassium Chloride 20 meq PO DAILY 05/06/19 05/06/19 Unknown History Sacubitril/Valsartan [Entresto 1 tab PO BID 05/06/19 05/06/19 Unknown History 49-51 mg] allopurinoL [Zyloprim] 100 mg PO QDAY 05/06/19 05/06/19 Unknown History carvediloL [Coreg] 25 mg PO DAILY 05/06/19 05/06/19 Unknown History Active Medications: Generic Name Dose Route Start Last Admin Trade Name Freq PRN Reason Stop Dose Admin Acetaminophen 650 mg 05/06/19 02:19 Tylenol PO Q4H PRN Pain MILD(1-3)/Fever >100.5/JENKINS Albuterol 2.5 mg 05/06/19 02:19 Proventil IH Q3HRT PRN Shortness Of Breath Albuterol/Ipratropium 1 ampul 05/07/19 14:00 05/10/19 08:16 Duoneb *Not For Prn Use* IH 1 ampul TIDRT STACEY Administration Allopurinol 100 mg 05/06/19 10:00 05/10/19 10:51 Zyloprim PO 100 mg QDAY STACEY Administration Arformoterol Tartrate 15 mcg 05/07/19 20:00 05/10/19 08:17 Brovana Nebu IH 15 mcg Q12HRT STACEY Administration Atorvastatin Calcium 40 mg 05/06/19 22:00 05/09/19 22:20 Lipitor PO 40 mg QHS STACEY Administration Budesonide 0.5 mg 05/06/19 08:00 05/10/19 08:16 Pulmicort IH 0.5 mg Q12HRT STACEY Administration Carvedilol 25 mg 05/06/19 10:00 05/10/19 10:50 Coreg PO 25 mg DAILY STACEY Administration Clopidogrel Bisulfate 75 mg 05/06/19 10:00 05/10/19 10:51 Plavix PO 75 mg QDAY STACEY Administration Dextrose 50 ml 05/06/19 02:19 D50w (25gm) Syringe IV Q30MIN PRN Hypoglycemia Protocol Docusate Sodium 100 mg 05/06/19 10:00 05/10/19 10:51 Colace PO 100 mg BID STACEY Administration Enoxaparin Sodium 30 mg 05/07/19 10:00 05/10/19 10:51 Enoxaparin SUB-Q 30 mg QDAY STACEY Administration Gabapentin 100 mg 05/06/19 08:00 05/10/19 08:43 Gabapentin PO 100 mg TID STACEY Administration Sodium Chloride 1,000 mls @ 50 mls/hr 05/09/19 14:00 05/09/19 15:42 Nacl 0.9% 1000 Ml IV 50 mls/hr DIRECT STACEY Administration Sodium Chloride 1,000 mls @ 100 mls/hr 05/09/19 15:30 Nacl 0.9% 1000 Ml IV DIRECT STACEY Insulin Human Isoph/Insulin Regular 18 unit 05/07/19 17:00 05/10/19 08:43 Humulin 70/30 SUB-Q 18 unit BIDDIAB STACEY Administration Insulin Human Lispro 0 unit 05/06/19 07:30 05/10/19 08:41 Humalog SUB-Q Not Given ACHS [facility] Protocol Levothyroxine Sodium 100 mcg 05/06/19 06:00 05/10/19 06:52 Synthroid PO 100 mcg QAM@0600 STACEY Administration Methylprednisolone Sodium Succinate 40 mg 05/07/19 13:32 05/10/19 06:52 Solu-Medrol IV 40 mg Q8HR STACEY Administration Nitroglycerin 0.4 mg 05/06/19 02:19 Nitrostat SL .Q5MIN PRN Chest Pain Ondansetron HCl 4 mg 05/06/19 02:19 Zofran IV Q8H PRN Nausea And Vomiting Pantoprazole Sodium 40 mg 05/06/19 10:00 05/10/19 10:51 Protonix PO 40 mg DAILY STACEY Administration Sodium Chloride 10 ml 05/06/19 10:00 05/09/19 22:23 Sodium Chloride Flush Syringe 10 Ml IV 10 ml BID STACEY Administration Sodium Chloride 10 ml 05/06/19 02:19 Sodium Chloride Flush Syringe 10 Ml IV PRN PRN LINE FLUSH
--- NOTE | 2019-05-10 15:48 | Progress Note ---
Assessment and Plan Ms. Ricketts is a 74 y/o female who presented to [facility] with shortness of breath that worsened over the past day. She is visiting from [place], [place], and sees a cardiovascular sonographer in that area. 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 She denies CP and edema. CXR NAF, but troponins mildly elevated to 0.112 and 0.087. Acute HFrEF Echo reviewed - EF 40-45%, mild to mod LVH, restrictive diastolic filling, LA mod to severely dilated, RV mild to mod dilated, pacemaker wire in RV, severe MR, mod TR, RVSP 61mmHg. Cont present cardiac management. Diuretics held in setting of renal insufficiency. COPD exacerbation CAD s/p CABG in 1996 PPM in situ Placed July 2018 BRIANA on CKD Nephrology following. NSTEMI type II HTN H/o CVA Hypothyroidism Obesity The patient has been seen in conjunction with Dr. Hutchinson who agrees with the assessment and plan of care. Subjective Date of service: 05/10/19 Principal diagnosis: HF Interval history: pt resting in chair, states she is feeling better today, SOB improving. Objective Last Vital Signs Temp 98.8 F 05/10/19 08:34 Pulse 72 05/10/19 14:00 Resp 74 H 05/10/19 14:00 BP 133/69 05/10/19 10:57 Pulse Ox 89 05/10/19 10:57 - Physical Examination General: No Apparent Distress HEENT: Positive: PERRL Neck: Positive: neck supple Cardiac: Positive: Reg Rate and Rhythm, S1/S2 Lungs: Positive: Decreased Breath Sounds Neuro: Positive: Grossly Intact Abdomen: Positive: Unremarkable /Rectal: Other (deferred) Skin: Positive: Clear Musculoskeletal: Normal Range of Motion Extremities: Present: normal. Absent: edema - Labs and Meds Comprehensive Metabolic Panel 05/10/19 Range/Units 07:35 Sodium 140 (137-145) mmol/L Potassium 3.9 (3.6-5.0) mmol/L Chloride 103.0 (98-107) mmol/L Carbon Dioxide 20 L (22-30) mmol/L BUN 106 H (7-17) mg/dL Creatinine 3.1 H (0.7-1.2) mg/dL Glucose 148 H (65-100) mg/dL Calcium 8.1 L (8.4-10.2) mg/dL - Imaging and Cardiology Echo: report reviewed (05/06/19: EF 40-45%, restrictive LV diastolic filling pattern, mod to severe dilation of RA, mild to mod dilation of RV, severe MR, moderate TR, RVSP of 61 mmHg.) Pacemaker: normal ventrical sensing
--- NOTE | 2019-05-10 16:25 | Progress Note ---
Assessment and Plan /-Acute on chronic systolic congestive heart failure; 40 to 45% EF s/p IV diuresis, input output monitoring, low-sodium diet Fluid restriction, heart failure medications Cardiology following, held diuresis for now for declining renal function /Acute kidney injury; worsening renal function vasomotor nephropathy due to diuretics avoid nephrotoxins, stoped diuretics, nephrology following Monitor BMP daily /Type II DM; uncontrolled Probably secondary to high-dose steroid use Accu-Chek sliding scale coverage ADA diet and increased Novolin 70/30 18 units twice daily, adjust as needed HbA1c 7.7 /-Acute on chronic respiratory failure; Secondary to acute exacerbation of systolic congestive heart failure Oxygen titrate O2 sats to more than 90% Heart failure medications, input output monitoring, supportive care /-Non-ST elevation [place]; nonspecific Cardiology following, continue cardiac medications /History of COPD/acute exacerbation Oxygen nebulizers tapering doses IV steroids, inhalation steroids,Supportive care, /-HTN; moderate control Continue current antihypertensives and PRN medications Supportive care /-GERD; on Protonix /-Hypothyroidism; continue Synthroid /Physical debility, PT consulted /DVT PPX; Lovenox renal dose /-Full CODE STATUS; Monitor closely and adjust management as needed Disposition; discharge when medically stable and cleared by nephrology. Consulted PT Brief history: 74-year-old female with history of CHF, pacemaker/ICD, CVA, [place], hypertension, diabetes, COPD, gout, hypothyroidism GERD, and HLD was admitted through [facility] ED with worsening shortness of breath and whe ezing. Patient is receiving heart failure medications as well as nebulizers steroids antibiotics, Blood sugars are uncontrolled due to high-dose steroids, renal function also declined. Subjective Date of service: 05/10/19 Principal diagnosis: HF Interval history: Patient seen and examined. Medical records and medication list reviewed. No acute event overnight noted by the RN. Patient states difficulty breathing improved, was able to get up from bed today Patient is tolerating diet. Discussed plan of care at bedside with patient and RN. Objective - Exam Narrative Exam: General appearance: Present: mild distress, well-nourished, obese - EENT Eyes: Present: PERRL, EOM intact - Neck Neck: Present: supple, normal ROM - Respiratory Respiratory effort: normal Respiratory: bilateral: diminished, rhonchi, negative: rales, wheezing - Cardiovascular Rhythm: regular Heart Sounds: Present: S1 & S2 - Extremities Extremities: no ischemia, No edema - Abdominal General gastrointestinal: soft, non-tender, non-distended, normal bowel sounds - Integumentary Integumentary: Present: clear, warm - Psychiatric Psychiatric: appropriate mood/affect, cooperative - Neurologic Neurologic: CNII-XII intact, moves all extremities - Constitutional Vitals: Vital Signs - 12hr 05/10/19 05/10/19 05/10/19 05:29 05:37 08:00 Temperature 97.8 F Pulse Rate 76 Pulse Rate [ 72 Anterior Throughout] Respiratory 20 Rate Respiratory 74 H Rate [Anterior Throughout] Blood Pressure 117/59 O2 Sat by Pulse 96 Oximetry 05/10/19 05/10/19 05/10/19 08:19 08:34 10:50 Temperature 98.8 F Pulse Rate 74 74 Pulse Rate [ Anterior Throughout] Respiratory 18 Rate Respiratory Rate [Anterior Throughout] Blood Pressure 150/64 133/69 O2 Sat by Pulse 98 100 Oximetry 05/10/19 05/10/19 10:57 14:00 Temperature Pulse Rate 71 Pulse Rate [ 72 Anterior Throughout] Respiratory 22 Rate Respiratory 74 H Rate [Anterior Throughout] Blood Pressure 133/69 O2 Sat by Pulse 89 Oximetry - Labs CBC & Chem 7: 05/08/19 13:13 05/11/19 05:34 Labs: Abnormal lab results 05/09/19 05/09/19 05/10/19 Range/Units 15:51 21:31 07:35 Carbon Dioxide 20 L (22-30) mmol/L BUN 106 H (7-17) mg/dL Creatinine 3.1 H (0.7-1.2) mg/dL Glucose 148 H (65-100) mg/dL POC Glucose 173 H 210 H (70-105) Calcium 8.1 L (8.4-10.2) mg/dL 05/10/19 05/10/19 05/10/19 Range/Units 08:10 08:23 12:14 Carbon Dioxide (22-30) mmol/L BUN (7-17) mg/dL Creatinine (0.7-1.2) mg/dL Glucose (65-100) mg/dL POC Glucose 149 H 160 H 194 H (70-105) Calcium (8.4-10.2) mg/dL
[2019-05-10] MEDS: SODIUM CHLORIDE 0.9% 1000 ML 1,000 ML IV SCH (18:40)
[2019-05-11] MEDS: LEVOTHYROXINE 100 MCG TAB PO SCH (06:09)
[2019-05-11] MEDS: methylPREDNISolone Sod Succinate 125 MG/2 ML INJ IV SCH ×2 (06:09→14:21)
[2019-05-11] MEDS: ARFORMOTEROL 15 MCG/2 ML NEBU IH SCH ×2 (10:26→20:10)
[2019-05-11] MEDS: BUDESONIDE 0.5 MG/2 ML NEBU IH SCH ×2 (10:26→20:10)
[2019-05-11] MEDS: IPRATROPIUM/ALBUTEROL SULFATE 3 ML AMPUL.NEB IH SCH ×3 (10:28→20:10)
[2019-05-11] MEDS: allopurinoL 100 MG TAB PO SCH (11:21)
[2019-05-11] MEDS: DOCUSATE SODIUM 100 MG CAP PO SCH ×2 (11:21→21:11)
[2019-05-11] MEDS: PANTOPRAZOLE 40 MG TAB PO SCH (11:22)
[2019-05-11] MEDS: GABAPENTIN 100 MG CAP PO SCH ×3 (11:22→21:12)
[2019-05-11] MEDS: ENOXAPARIN 30 MG/0.3 ML INJ SUB-Q SCH (11:23)
[2019-05-11] MEDS: carvediloL 25 MG TAB PO SCH (11:23)
[2019-05-11] MEDS: CLOPIDOGREL 75 MG TAB PO SCH (11:23)
[2019-05-11] MEDS: INSULIN NPH/REGULAR 70/30 INJ SUB-Q SCH ×2 (11:35→19:35)
[2019-05-11] MEDS: INSULIN LISPRO 100 UNIT/ML SUB-Q SCH ×4 (11:36→21:12)
--- NOTE | 2019-05-11 12:35 | Progress Note ---
Assessment and Plan Ms. Ricketts is a 74 y/o female who presented to [facility] with shortness of breath x 1 day [employer]. She is visiting from [place], [place], and sees a pad extractor tender in that area. Her medical history is significant for heart failure, CKD, COPD, CAD s/p CABG in 1996, NICKIE on CPAP, PPM in situ placed July 2018, [place], hypertension, h/o CVA and hypothyroidism. She denies CP and edema. CXR NAF, troponins minimally elevated. Acute HFrEF Echo reviewed - EF 40-45%, mild to mod LVH, restrictive diastolic filling, LA mod to severely dilated, RV mild to mod dilated, pacemaker wire in RV, severe MR, mod TR, RVSP 61mmHg. Convert lopressor to coreg in setting of COPD. No ACEI/ARB or diuretics in setting of renal insufficiency. COPD exacerbation Improving. Management per primary. CAD s/p CABG in 1996 Cont ASA and statin. Pt's home medication regimen includes Plavix - no apparent cardiac indication for continuation of Plavix. PPM in situ Placed July 2018 BRIANA on CKD Nephrology following. NSTEMI type II Ghanshyam trending downwards. Pt denies chest pain. ECG with no acute ischemic changes. HTN Stable. H/o CVA Hypothyroidism NICKIE Obesity Currently stable cardiac status. Cont present cardiac management. Nothing further to add from cardiac perspective at this time. Will sign off. Recommend pt follow up with her primary cardiology team in [place], [place] within 3-5 days of discharge. Pt verbalizes understanding. The patient has been seen in conjunction with Dr. Hutchinson who agrees with the assessment and plan of care. Subjective Date of service: 05/11/19 Principal diagnosis: HF Interval history: pt resting in bed, states she is feeling well. Objective Last Vital Signs Temp 97.7 F 05/11/19 05:33 Pulse 71 05/11/19 05:33 Resp 20 05/11/19 05:33 BP 127/59 05/11/19 05:33 Pulse Ox 98 05/11/19 05:33 - Physical Examination General: No Apparent Distress HEENT: Positive: PERRL Neck: Positive: neck supple Cardiac: Positive: Reg Rate and Rhythm, S1/S2 Lungs: Positive: Decreased Breath Sounds Neuro: Positive: Grossly Intact Abdomen: Positive: Unremarkable /Rectal: Other (deferred) Skin: Positive: Clear Musculoskeletal: Normal Range of Motion Extremities: Present: normal. Absent: edema - Labs and Meds Comprehensive Metabolic Panel 05/11/19 Range/Units 05:34 Sodium 138 (137-145) mmol/L Potassium 4.1 (3.6-5.0) mmol/L Chloride 102.3 (98-107) mmol/L Carbon Dioxide 21 L (22-30) mmol/L BUN 101 H (7-17) mg/dL Creatinine 3.2 H (0.7-1.2) mg/dL Glucose 163 H (65-100) mg/dL Calcium 8.0 L (8.4-10.2) mg/dL - Imaging and Cardiology Echo: report reviewed (05/06/19: EF 40-45%, restrictive LV diastolic filling pattern, mod to severe dilation of RA, mild to mod dilation of RV, severe MR, moderate TR, RVSP of 61 mmHg.) Pacemaker: normal ventrical sensing
--- NOTE | 2019-05-11 14:43 | Progress Note ---
Assessment and Plan /-Acute on chronic systolic congestive heart failure; 40 to 45% EF s/p IV diuresis, input output monitoring, low-sodium diet Fluid restriction, heart failure medications Cardiology following, No ACEI/ARB or diuretics in setting of renal ins ufficiency. /Acute kidney injury; worsening renal function vasomotor nephropathy due to diuretics avoid nephrotoxins, stoped diuretics, nephrology following Monitor BMP daily /Type II DM; uncontrolled Probably secondary to high-dose steroid use Accu-Chek sliding scale coverage ADA diet and increased Novolin 70/30 18 units twice daily, adjust as needed HbA1c 7.7 /-Acute on chronic respiratory failure; Secondary to acute exacerbation of systolic congestive heart failure Oxygen titrate O2 sats to more than 90% Heart failure medications, input output monitoring, supportive care /-Non-ST elevation [place]; nonspecific Cardiology following, continue cardiac medications /History of COPD/acute exacerbation Oxygen nebulizers tapering doses IV steroids, inhalation steroids,Supportive care, /-HTN; moderate control Continue current antihypertensives and PRN medications Supportive care /-GERD; on Protonix /-Hypothyroidism; continue Synthroid /Physical debility, PT consulted /DVT PPX; Lovenox renal dose /-Full CODE STATUS; Monitor closely and adjust management as needed Disposition; discharge when medically stable and cleared by nephrology. Consulted PT Brief history: 74-year-old female with history of CHF, pacemaker/ICD, CVA, [place], hypertension, diabetes, COPD, gout, hypothyroidism GERD, and HLD was admitted through [facility] ED with worsening shortness of breath and wheezing. Patient is receiving heart failure medications as well as nebulizers steroids antibiotics, Blood sugars are uncontrolled due to high-dose steroids, renal function also declined. Subjective Date of service: 05/11/19 Principal diagnosis: HF Interval history: Patient seen and examined. Medical records and medication list reviewed. No acute event overnight noted by the RN. Patient states difficulty breathing improved, was able to get up from bed easily Patient is tolerating diet. Discussed plan of care at bedside with patient and RN. discussed with Dr Gore - has poor prognosis as far as kidney concerns Objective - Exam Narrative Exam: General appearance: Present: mild distress, well-nourished, obese - EENT Eyes: Present: PERRL, EOM intact - Neck Neck: Present: supple, normal ROM - Respiratory Respiratory effort: normal Respiratory: bilateral: diminished, rhonchi, negative: rales, wheezing - Cardiovascular Rhythm: regular Heart Sounds: Present: S1 & S2 - Extremities Extremities: no ischemia, No edema - Abdominal General gastrointestinal: soft, non-tender, non-distended, normal bowel sounds - Integumentary Integumentary: Present: clear, warm - Psychiatric Psychiatric: appropriate mood/affect, cooperative - Neurologic Neurologic: CNII-XII intact, moves all extremities - Constitutional Vitals: Vital Signs - 12hr 05/11/19 05/11/19 03:00 05:33 Temperature 97.7 F Pulse Rate 98 H 71 Respiratory 20 Rate Blood Pressure 127/59 O2 Sat by Pulse 98 Oximetry - Labs CBC & Chem 7: 05/08/19 13:13 05/12/19 07:58 Labs: Abnormal lab results 05/10/19 05/10/19 05/11/19 Range/Units 17:19 21:43 05:34 Carbon Dioxide 21 L (22-30) mmol/L BUN 101 H (7-17) mg/dL Creatinine 3.2 H (0.7-1.2) mg/dL Glucose 163 H (65-100) mg/dL POC Glucose 205 H 195 H (70-105) Calcium 8.0 L (8.4-10.2) mg/dL 05/11/19 05/11/19 Range/Units 08:20 14:39 Carbon Dioxide (22-30) mmol/L BUN (7-17) mg/dL Creatinine (0.7-1.2) mg/dL Glucose (65-100) mg/dL POC Glucose 154 H 266 H (70-105) Calcium (8.4-10.2) mg/dL
[2019-05-11] MEDS: METOPROLOL TARTRATE 25 MG TAB PO SCH (21:11)
--- NOTE | 2019-05-11 23:30 | Progress Note ---
Assessment and Plan 1. Acute kidney injury: Likely vasomotor BRIANA superimposed on CKD stage 3. Renal US negative for hydronephrosis. BUN & Creatinine level is same as yesterday. Gentle IV fluids. Monitor renal function. Renal prognosis is guarded. Avoid nephrotoxic agents. Meds dosage based on GFR. 2. FEN: Hyperkalemia, improved. Metabolic acidosis, monitor. Monitor lytes. 3. Acute hypoxic respiratory failure: Likely secondary to COPD exacerbation. Continue supplemental O2, Steroids and bronchodilators. 4. NSTEMI / elevated troponin: Followed by Cards. 5. H/o HFrEF. 6. DM type 2 with hyperglycemia. 7. Hypertension. Examination: General appearance: well-developed, well-nourished, appears stated age, obese, no distress HEENT: ATNC, KETAN, vision intact, hearing diminished Neck: neck supple, trachea midline Respiratory: ctab Heart: regular, S1S2, no murmurs Gastrointestinal: soft, obese, normoactive bowel sounds, not tender Integumentary: no rash, warm and dry Neurologic: no focal deficit, no asterixis, alert and oriented x3 Ext: no edema Subjective Date of service: 05/11/19 Principal diagnosis: HF Interval history: Patient was seen and examined at the bedside. Doing ok. Objective - Vital Signs Vital signs: Vital Signs - 12hr 05/11/19 05/11/19 05/11/19 16:35 16:45 19:19 Temperature 97.8 F Pulse Rate 75 Pulse Rate [ 78 Anterior Throughout] Respiratory 18 Rate Respiratory 20 Rate [Anterior Throughout] Blood Pressure 142/68 O2 Sat by Pulse 100 98 Oximetry 05/11/19 05/11/19 05/11/19 20:11 20:26 21:11 Temperature Pulse Rate 75 Pulse Rate [ 77 Anterior Throughout] Respiratory Rate Respiratory 13 Rate [Anterior Throughout] Blood Pressure 142/68 O2 Sat by Pulse 97 Oximetry - Lab 05/08/19 13:13 05/11/19 05:34 Most recent lab results Calcium 8.0 mg/dL (8.4-10.2) L 05/11/19 05:34 Magnesium 2.50 mg/dL (1.7-2.3) H 05/08/19 13:13 Urine Creatinine 151.1 mg/dL (0.1-20.0) H 05/07/19 17:04 Urine Sodium 13 mmol/L 05/07/19 17:04 Urine Total Protein 36 mg/dL (5-11.8) H 05/07/19 17:04 Medications & Allergies - Medications Allergies/Adverse Reactions: Allergies Penicillins Allergy (Verified 05/05/19 23:49) Unknown Home Medications: Home Medications Medication Instructions Recorded Confirmed Last Taken Type AtorvaSTATin [Lipitor] 40 mg PO QHS 05/06/19 05/06/19 Unknown History Budesonide/Formoterol Fumarate 2 puff IH BID 05/06/19 05/06/19 Unknown History [Symbicort 160-4.5 Mcg Inhaler] Bumetanide 2.5 mg PO BID 05/06/19 05/06/19 Unknown History Clopidogrel [Plavix] 75 mg PO QDAY 05/06/19 05/06/19 Unknown History Fluticasone/Vilanterol [Breo 1 puff IH DAILY 05/06/19 05/06/19 Unknown History Ellipta 200-25 Mcg INH] Gabapentin [Neurontin] 100 mg PO TID 05/06/19 05/06/19 Unknown History Insulin Aspart (Nf) [NovoLOG 100 5 units SUB-Q TID 05/06/19 05/06/19 Unknown History UNITS/ML VIAL] Ipratropium/Albuter (Nf) 1 puff IH Q8HR 05/06/19 05/06/19 Unknown History [Combivent Inhaler] Levothyroxine [Synthroid] 100 mcg PO QAM 05/06/19 05/06/19 Unknown History Nystatin [Nystop Powder] 1 applicatio TP BID 05/06/19 05/06/19 Unknown History PANTOPRAZOLE SODIUM (nf) [Protonix 40 mg PO DAILY 05/06/19 05/06/19 Unknown History GRANULES] Potassium Chloride 20 meq PO DAILY 05/06/19 05/06/19 Unknown History Sacubitril/Valsartan [Entresto 1 tab PO BID 05/06/19 05/06/19 Unknown History 49-51 mg] allopurinoL [Zyloprim] 100 mg PO QDAY 05/06/19 05/06/19 Unknown History carvediloL [Coreg] 25 mg PO DAILY 05/06/19 05/06/19 Unknown History Active Medications: Generic Name Dose Route Start Last Admin Trade Name Freq PRN Reason Stop Dose Admin Acetaminophen 650 mg 05/06/19 02:19 Tylenol PO Q4H PRN Pain MILD(1-3)/Fever >100.5/JENKINS Albuterol 2.5 mg 05/06/19 02:19 Proventil IH Q3HRT PRN Shortness Of Breath Albuterol/Ipratropium 1 ampul 05/07/19 14:00 05/11/19 20:10 Duoneb *Not For Prn Use* IH 1 ampul TIDRT STACEY Administration Allopurinol 100 mg 05/06/19 10:00 05/11/19 11:21 Zyloprim PO 100 mg QDAY STACEY Administration Arformoterol Tartrate 15 mcg 05/07/19 20:00 05/11/19 20:10 Broeryn Gradyu IH Not Given Q12HRT STACEY Aspirin 81 mg 05/12/19 10:00 Baby Aspirin PO QDAY STACEY Atorvastatin Calcium 40 mg 05/06/19 22:00 05/11/19 21:12 Lipitor PO 40 mg QHS STACEY Administration Budesonide 0.5 mg 05/06/19 08:00 05/11/19 20:10 Pulmicort IH 0.5 mg Q12HRT STACEY Administration Clopidogrel Bisulfate 75 mg 05/06/19 10:00 05/11/19 11:23 Plavix PO 75 mg QDAY STACEY Administration Dextrose 50 ml 05/06/19 02:19 D50w (25gm) Syringe IV Q30MIN PRN Hypoglycemia Protocol Docusate Sodium 100 mg 05/06/19 10:00 05/11/19 21:11 Colace PO 100 mg BID STACEY Administration Enoxaparin Sodium 30 mg 05/07/19 10:00 05/11/19 11:23 Enoxaparin SUB-Q 30 mg QDAY STACEY Administration Gabapentin 100 mg 05/06/19 08:00 05/11/19 21:12 Gabapentin PO 100 mg TID STACEY Administration Sodium Chloride 1,000 mls @ 50 mls/hr 05/09/19 14:00 05/10/19 18:40 Nacl 0.9% 1000 Ml IV 50 mls/hr DIRECT STACEY Administration Sodium Chloride 1,000 mls @ 100 mls/hr 05/09/19 15:30 Nacl 0.9% 1000 Ml IV DIRECT STACEY Insulin Human Isoph/Insulin Regular 18 unit 05/07/19 17:00 05/11/19 19:35 Humulin 70/30 SUB-Q 18 unit BIDDIAB STACEY Administration Insulin Human Lispro 0 unit 05/06/19 07:30 05/11/19 21:12 Humalog SUB-Q 3 unit ACHS STACEY Administration Protocol Levothyroxine Sodium 100 mcg 05/06/19 06:00 05/11/19 06:09 Synthroid PO 100 mcg QAM@0600 STACEY Administration Methylprednisolone Sodium Succinate 40 mg 05/12/19 10:00 Solu-Medrol IV Q24HR [facility] Metoprolol Tartrate 25 mg 05/11/19 22:00 05/11/19 21:11 Metoprolol PO 25 mg BID STACEY Administration Nitroglycerin 0.4 mg 05/06/19 02:19 Nitrostat SL .Q5MIN PRN Chest Pain Ondansetron HCl 4 mg 05/06/19 02:19 Zofran IV Q8H PRN Nausea And Vomiting Pantoprazole Sodium 40 mg 05/06/19 10:00 05/11/19 11:22 Protonix PO 40 mg DAILY STACEY Administration Sodium Chloride 10 ml 05/06/19 10:00 05/11/19 21:13 Sodium Chloride Flush Syringe 10 Ml IV 10 ml BID STACEY Administration Sodium Chloride 10 ml 05/06/19 02:19 Sodium Chloride Flush Syringe 10 Ml IV PRN PRN LINE FLUSH
[2019-05-12] MEDS: SODIUM CHLORIDE 0.9% 1000 ML 1,000 ML IV SCH ×2 (00:52→21:59)
[2019-05-12] MEDS: LEVOTHYROXINE 100 MCG TAB PO SCH (05:10)
[2019-05-12] MEDS: ARFORMOTEROL 15 MCG/2 ML NEBU IH SCH ×2 (07:42→21:27)
[2019-05-12] MEDS: BUDESONIDE 0.5 MG/2 ML NEBU IH SCH ×2 (07:42→21:26)
[2019-05-12] MEDS: IPRATROPIUM/ALBUTEROL SULFATE 3 ML AMPUL.NEB IH SCH ×3 (07:43→21:26)
[2019-05-12] MEDS: INSULIN NPH/REGULAR 70/30 INJ SUB-Q SCH ×2 (08:45→16:20)
[2019-05-12 08:49] LABS: Calcium 7.7 mg/dL (8.4-10.2)
[2019-05-12] MEDS ORDERED: ASPIRIN 81 MG TAB CHEW PO SCH (10:00)
[2019-05-12] MEDS: INSULIN LISPRO 100 UNIT/ML SUB-Q SCH ×4 (12:08→21:58)
[2019-05-12] MEDS: GABAPENTIN 100 MG CAP PO SCH ×3 (12:14→21:58)
[2019-05-12] MEDS: PANTOPRAZOLE 40 MG TAB PO SCH (12:14)
[2019-05-12] MEDS: CLOPIDOGREL 75 MG TAB PO SCH (12:15)
[2019-05-12] MEDS: ENOXAPARIN 30 MG/0.3 ML INJ SUB-Q SCH (12:15)
[2019-05-12] MEDS: allopurinoL 100 MG TAB PO SCH (12:16)
[2019-05-12] MEDS: DOCUSATE SODIUM 100 MG CAP PO SCH ×2 (12:17→21:57)
[2019-05-12] MEDS: METOPROLOL TARTRATE 25 MG TAB PO SCH ×2 (12:17→21:58)
[2019-05-12] MEDS: methylPREDNISolone Sod Succinate 125 MG/2 ML INJ IV SCH (12:18)
--- NOTE | 2019-05-12 15:32 | Progress Note ---
Assessment and Plan /-Acute on chronic systolic congestive heart failure; 40 to 45% EF s/p IV diuresis, input output monitoring, low-sodium diet Fluid restriction, heart failure medications Cardiology following, No ACEI/ARB or diuretics in setting of renal ins ufficiency. /Hyperkalemia, sample hemolyzed, ordered repeat bmp level /Acute kidney injury; worsening renal function - but appears steady now vasomotor nephropathy due to diuretics avoid nephrotoxins, stoped diuretics, nephrology following Monitor BMP daily /Type II DM; uncontrolled Probably secondary to high-dose steroid use Accu-Chek sliding scale coverage ADA diet and increased Novolin 70/30 18 units twice daily, adjust as needed HbA1c 7.7 /-Acute on chronic respiratory failure; Secondary to acute exacerbation of systolic congestive heart failure Oxygen titrate O2 sats to more than 90% Heart failure medications, input output monitoring, supportive care /-Non-ST elevation [place]; nonspecific Cardiology following, continue cardiac medications /History of COPD/acute exacerbation Oxygen nebulizers tapering doses IV steroids, inhalation steroids,Supportive care, /-HTN; moderate control Continue current antihypertensives and PRN medications Supportive care /-GERD; on Protonix /-Hypothyroidism; continue Synthroid /Physical debility, PT consulted /DVT PPX; Lovenox renal dose /-Full CODE STATUS; Monitor closely and adjust management as needed Disposition; discharge when medically stable and cleared by nephrology. Consulted PT Brief history: 74-year-old female with history of CHF, pacemaker/ICD, CVA, [place], hypertension, diabetes, COPD, gout, hypothyroidism GERD, and HLD was admitted through [facility] ED with worsening shortness of breath and wheezing. Patient is receiving heart failure medications as well as nebulizers steroids antibiotics, Blood sugars are uncontrolled due to high-dose steroids, renal function also declined. Subjective Date of service: 05/12/19 Principal diagnosis: HF Interval history: Patient seen and examined. Medical records and medication list reviewed. No acute event overnight noted by the RN. Patient states difficulty breathing improved, was able to get up from bed easily Patient is tolerating diet. Discussed plan of care at bedside with patient and RN. discussed with Dr Gore - has poor prognosis as far as kidney concerns Objective - Exam Narrative Exam: General appearance: Present: mild distress, well-nourished, obese - EENT Eyes: Present: PERRL, EOM intact - Neck Neck: Present: supple, normal ROM - Respiratory Respiratory effort: normal Respiratory: bilateral: diminished, rhonchi, negative: rales, wheezing - Cardiovascular Rhythm: regular Heart Sounds: Present: S1 & S2 - Extremities Extremities: no ischemia, No edema - Abdominal General gastrointestinal: soft, non-tender, non-distended, normal bowel sounds - Integumentary Integumentary: Present: clear, warm - Psychiatric Psychiatric: appropriate mood/affect, cooperative - Neurologic Neurologic: CNII-XII intact, moves all extremities - Constitutional Vitals: Vital Signs - 12hr 05/12/19 05/12/19 05/12/19 04:13 07:43 08:14 Temperature 98.0 F 97.4 F L Pulse Rate 71 77 Pulse Rate [ 71 Anterior Throughout] Respiratory 18 18 Rate Respiratory 18 Rate [Anterior Throughout] Blood Pressure 121/62 130/67 O2 Sat by Pulse 100 100 100 Oximetry 05/12/19 05/12/19 05/12/19 11:39 12:17 13:23 Temperature 97.6 F Pulse Rate 72 72 Pulse Rate [ 83 Anterior Throughout] Respiratory 20 Rate Respiratory 18 Rate [Anterior Throughout] Blood Pressure 128/69 O2 Sat by Pulse 100 Oximetry - Labs CBC & Chem 7: 05/08/19 13:13 05/13/19 07:36 Labs: Abnormal lab results 05/11/19 05/11/19 05/12/19 Range/Units 17:28 20:29 07:58 Sodium 135 L (137-145) mmol/L Potassium 5.9 H D (3.6-5.0) mmol/L Carbon Dioxide 17 L (22-30) mmol/L BUN 102 H (7-17) mg/dL Creatinine 3.1 H (0.7-1.2) mg/dL Glucose 152 H (65-100) mg/dL POC Glucose 373 H 201 H (70-105) Calcium 7.7 L (8.4-10.2) mg/dL 05/12/19 05/12/19 Range/Units 11:51 12:17 Sodium (137-145) mmol/L Potassium (3.6-5.0) mmol/L Carbon Dioxide (22-30) mmol/L BUN (7-17) mg/dL Creatinine (0.7-1.2) mg/dL Glucose (65-100) mg/dL POC Glucose 180 H 197 H (70-105) Calcium (8.4-10.2) mg/dL
--- NOTE | 2019-05-12 23:31 | Progress Note ---
Assessment and Plan 1. Acute kidney injury: Likely vasomotor BRIANA superimposed on CKD stage 3. Renal US negative for hydronephrosis. BUN & Creatinine level is same as yesterday. Gentle IV fluids. Monitor renal function. Renal prognosis is guarded. Avoid nephrotoxic agents. Meds dosage based on GFR. 2. FEN: Hyperkalemia, improved. Metabolic acidosis, monitor. Monitor lytes. 3. Acute hypoxic respiratory failure: Likely secondary to COPD exacerbation. Continue supplemental O2, Steroids and bronchodilators. 4. NSTEMI / elevated troponin: Followed by Cards. 5. H/o HFrEF. 6. DM type 2 with hyperglycemia. 7. Hypertension. Examination: General appearance: well-developed, well-nourished, appears stated age, obese, no distress HEENT: ATNC, KETAN, vision intact, hearing diminished Neck: neck supple, trachea midline Respiratory: ctab Heart: regular, S1S2, no murmurs Gastrointestinal: soft, obese, normoactive bowel sounds, not tender Integumentary: no rash, warm and dry Neurologic: no focal deficit, no asterixis, alert and oriented x3 Ext: no edema Subjective Date of service: 05/12/19 Principal diagnosis: HF Interval history: Patient was seen and examined at the bedside. Appetite remains low. Objective - Vital Signs Vital signs: Vital Signs - 12hr 05/12/19 05/12/19 05/12/19 11:39 12:17 13:23 Temperature 97.6 F Pulse Rate 72 72 Pulse Rate [ 83 Anterior Throughout] Respiratory 20 Rate Respiratory 18 Rate [Anterior Throughout] Blood Pressure 128/69 O2 Sat by Pulse 100 Oximetry 05/12/19 05/12/19 05/12/19 16:01 20:00 21:28 Temperature 97.4 F L 98.0 F Pulse Rate 75 74 Pulse Rate [ 77 Anterior Throughout] Respiratory 20 18 Rate Respiratory 18 Rate [Anterior Throughout] Blood Pressure 128/69 123/62 O2 Sat by Pulse 99 100 Oximetry 05/12/19 21:58 Temperature Pulse Rate 74 Pulse Rate [ Anterior Throughout] Respiratory Rate Respiratory Rate [Anterior Throughout] Blood Pressure 123/62 O2 Sat by Pulse Oximetry - Lab 05/08/19 13:13 05/12/19 15:07 Most recent lab results Calcium 7.7 mg/dL (8.4-10.2) L 05/12/19 07:58 Magnesium 2.50 mg/dL (1.7-2.3) H 05/08/19 13:13 Urine Creatinine 151.1 mg/dL (0.1-20.0) H 05/07/19 17:04 Urine Sodium 13 mmol/L 05/07/19 17:04 Urine Total Protein 36 mg/dL (5-11.8) H 05/07/19 17:04 Medications & Allergies - Medications Allergies/Adverse Reactions: Allergies Penicillins Allergy (Verified 05/05/19 23:49) Unknown Home Medications: Home Medications Medication Instructions Recorded Confirmed Last Taken Type AtorvaSTATin [Lipitor] 40 mg PO QHS 05/06/19 05/06/19 Unknown History Budesonide/Formoterol Fumarate 2 puff IH BID 05/06/19 05/06/19 Unknown History [Symbicort 160-4.5 Mcg Inhaler] Bumetanide 2.5 mg PO BID 05/06/19 05/06/19 Unknown History Clopidogrel [Plavix] 75 mg PO QDAY 05/06/19 05/06/19 Unknown History Fluticasone/Vilanterol [Breo 1 puff IH DAILY 05/06/19 05/06/19 Unknown History Ellipta 200-25 Mcg INH] Gabapentin [Neurontin] 100 mg PO TID 05/06/19 05/06/19 Unknown History Insulin Aspart (Nf) [NovoLOG 100 5 units SUB-Q TID 05/06/19 05/06/19 Unknown History UNITS/ML VIAL] Ipratropium/Albuter (Nf) 1 puff IH Q8HR 05/06/19 05/06/19 Unknown History [Combivent Inhaler] Levothyroxine [Synthroid] 100 mcg PO QAM 05/06/19 05/06/19 Unknown History Nystatin [Nystop Powder] 1 applicatio TP BID 05/06/19 05/06/19 Unknown History PANTOPRAZOLE SODIUM (nf) [Protonix 40 mg PO DAILY 05/06/19 05/06/19 Unknown History GRANULES] Potassium Chloride 20 meq PO DAILY 05/06/19 05/06/19 Unknown History Sacubitril/Valsartan [Entresto 1 tab PO BID 05/06/19 05/06/19 Unknown History 49-51 mg] allopurinoL [Zyloprim] 100 mg PO QDAY 05/06/19 05/06/19 Unknown History carvediloL [Coreg] 25 mg PO DAILY 05/06/19 05/06/19 Unknown History Active Medications: Generic Name Dose Route Start Last Admin Trade Name Freq PRN Reason Stop Dose Admin Acetaminophen 650 mg 05/06/19 02:19 Tylenol PO Q4H PRN Pain MILD(1-3)/Fever >100.5/JENKINS Albuterol 2.5 mg 05/06/19 02:19 Proventil IH Q3HRT PRN Shortness Of Breath Albuterol/Ipratropium 1 ampul 05/07/19 14:00 05/12/19 21:26 Duoneb *Not For Prn Use* IH 1 ampul TIDRT STACEY Administration Allopurinol 100 mg 05/06/19 10:00 05/12/19 12:16 Zyloprim PO 100 mg QDAY STACEY Administration Arformoterol Tartrate 15 mcg 05/07/19 20:00 05/12/19 21:27 Brovana Nebu IH 15 mcg Q12HRT STACEY Administration Aspirin 81 mg 05/12/19 10:00 05/12/19 12:16 Baby Aspirin PO 81 mg QDAY STACEY Administration Atorvastatin Calcium 40 mg 05/06/19 22:00 05/12/19 21:58 Lipitor PO 40 mg QHS STACEY Administration Budesonide 0.5 mg 05/06/19 08:00 05/12/19 21:26 Pulmicort IH 0.5 mg Q12HRT STACEY Administration Clopidogrel Bisulfate 75 mg 05/06/19 10:00 05/12/19 12:15 Plavix PO 75 mg QDAY STACEY Administration Dextrose 50 ml 05/06/19 02:19 D50w (25gm) Syringe IV Q30MIN PRN Hypoglycemia Protocol Docusate Sodium 100 mg 05/06/19 10:00 05/12/19 21:57 Colace PO 100 mg BID STACEY Administration Enoxaparin Sodium 30 mg 05/07/19 10:00 05/12/19 12:15 Enoxaparin SUB-Q 30 mg QDAY STACEY Administration Gabapentin 100 mg 05/06/19 08:00 05/12/19 21:58 Gabapentin PO 100 mg TID STACEY Administration Sodium Chloride 1,000 mls @ 50 mls/hr 05/09/19 14:00 05/12/19 21:59 Nacl 0.9% 1000 Ml IV 50 mls/hr DIRECT STACEY Administration Sodium Chloride 1,000 mls @ 100 mls/hr 05/09/19 15:30 Nacl 0.9% 1000 Ml IV DIRECT STACEY Insulin Human Isoph/Insulin Regular 18 unit 05/07/19 17:00 05/12/19 16:20 Humulin 70/30 SUB-Q 18 unit BIDDIAB STACEY Administration Insulin Human Lispro 0 unit 05/06/19 07:30 05/12/19 21:58 Humalog SUB-Q 2 unit ACHS STACEY Administration Protocol Levothyroxine Sodium 100 mcg 05/06/19 06:00 05/12/19 05:10 Synthroid PO 100 mcg QAM@0600 STACEY Administration Methylprednisolone Sodium Succinate 40 mg 05/12/19 10:00 05/12/19 12:18 Solu-Medrol IV 40 mg Q24HR STACEY Administration Metoprolol Tartrate 25 mg 05/11/19 22:00 05/12/19 21:58 Metoprolol PO 25 mg BID STACEY Administration Nitroglycerin 0.4 mg 05/06/19 02:19 Nitrostat SL .Q5MIN PRN Chest Pain Ondansetron HCl 4 mg 05/06/19 02:19 Zofran IV Q8H PRN Nausea And Vomiting Pantoprazole Sodium 40 mg 05/06/19 10:00 05/12/19 12:14 Protonix PO 40 mg DAILY STACEY Administration Sodium Chloride 10 ml 05/06/19 10:00 05/12/19 22:00 Sodium Chloride Flush Syringe 10 Ml IV 10 ml BID STACEY Administration Sodium Chloride 10 ml 05/06/19 02:19 Sodium Chloride Flush Syringe 10 Ml IV PRN PRN LINE FLUSH
[2019-05-13] MEDS: LEVOTHYROXINE 100 MCG TAB PO SCH (05:15)
[2019-05-13] MEDS: BUDESONIDE 0.5 MG/2 ML NEBU IH SCH ×2 (08:25→20:50)
[2019-05-13] MEDS: IPRATROPIUM/ALBUTEROL SULFATE 3 ML AMPUL.NEB IH SCH ×3 (08:26→20:50)
[2019-05-13] MEDS: ARFORMOTEROL 15 MCG/2 ML NEBU IH SCH ×2 (08:27→20:49)
[2019-05-13] MEDS: INSULIN LISPRO 100 UNIT/ML SUB-Q SCH (08:32)
[2019-05-13] MEDS: INSULIN NPH/REGULAR 70/30 INJ SUB-Q SCH (10:03)
[2019-05-13] MEDS: CLOPIDOGREL 75 MG TAB PO SCH (10:55)
[2019-05-13] MEDS: PANTOPRAZOLE 40 MG TAB PO SCH (10:55)
[2019-05-13] MEDS: METOPROLOL TARTRATE 25 MG TAB PO SCH (10:55)
[2019-05-13] MEDS: allopurinoL 100 MG TAB PO SCH (10:55)
[2019-05-13] MEDS: GABAPENTIN 100 MG CAP PO SCH (10:55)
[2019-05-13] MEDS: DOCUSATE SODIUM 100 MG CAP PO SCH (10:55)
[2019-05-13] MEDS: ENOXAPARIN 30 MG/0.3 ML INJ SUB-Q SCH (10:56)
[2019-05-13] MEDS: methylPREDNISolone Sod Succinate 125 MG/2 ML INJ IV SCH (10:57)
[2019-05-13 10:58] VITALS: BP 138/78
--- NOTE | 2019-05-13 14:22 | Progress Note ---
Assessment and Plan 1. Acute kidney injury: Likely vasomotor BRIANA superimposed on CKD stage 3. Renal US negative for hydronephrosis. Slight improvement in the creatinine level today. Encouraged PO fluids. Monitor renal function. Renal prognosis is guarded. Avoid nephrotoxic agents. Meds dosage based on GFR. 2. FEN: Hyperkalemia, improved. Metabolic acidosis, 1 tsp baking soda daily at home. Monitor lytes. 3. Acute hypoxic respiratory failure: Likely secondary to COPD exacerbation. Continue supplemental O2, Steroids and bronchodilators. 4. NSTEMI / elevated troponin: Seen by Cards. 5. H/o HFrEF. 6. DM type 2 with hyperglycemia. 7. Hypertension. F/u with me in 1-2 weeks. Examination: General appearance: well-developed, well-nourished, appears stated age, obese, no distress HEENT: ATNC, KETAN, vision intact, hearing diminished Neck: neck supple, trachea midline Respiratory: ctab Heart: regular, S1S2, no murmurs Gastrointestinal: soft, obese, normoactive bowel sounds, not tender Integumentary: no rash, warm and dry Neurologic: no focal deficit, no asterixis, alert and oriented x3 Ext: no edema Subjective Date of service: 05/13/19 Principal diagnosis: HF Interval history: Patient was seen and examined at the bedside. Doing ok. Objective - Vital Signs Vital signs: Vital Signs - 12hr 05/13/19 05/13/19 05/13/19 04:41 07:50 08:46 Temperature 97.8 F Pulse Rate 75 Pulse Rate [ 75 Anterior Throughout] Respiratory 18 Rate Respiratory 18 Rate [Anterior Throughout] Blood Pressure 136/76 O2 Sat by Pulse 100 100 Oximetry 05/13/19 05/13/19 05/13/19 09:15 10:55 13:49 Temperature Pulse Rate 90 75 Pulse Rate [ 74 Anterior Throughout] Respiratory Rate Respiratory 18 Rate [Anterior Throughout] Blood Pressure 138/78 O2 Sat by Pulse Oximetry - Lab 05/08/19 13:13 05/13/19 07:36 Most recent lab results Calcium 8.0 mg/dL (8.4-10.2) L 05/13/19 07:36 Magnesium 2.50 mg/dL (1.7-2.3) H 05/08/19 13:13 Urine Creatinine 151.1 mg/dL (0.1-20.0) H 05/07/19 17:04 Urine Sodium 13 mmol/L 05/07/19 17:04 Urine Total Protein 36 mg/dL (5-11.8) H 05/07/19 17:04 Medications & Allergies - Medications Allergies/Adverse Reactions: Allergies Penicillins Allergy (Verified 05/05/19 23:49) Unknown Home Medications: Home Medications Medication Instructions Recorded Confirmed Last Taken Type AtorvaSTATin [Lipitor] 40 mg PO QHS 05/06/19 05/06/19 Unknown History Budesonide/Formoterol Fumarate 2 puff IH BID 05/06/19 05/06/19 Unknown History [Symbicort 160-4.5 Mcg Inhaler] Clopidogrel [Plavix] 75 mg PO QDAY 05/06/19 05/06/19 Unknown History Gabapentin 100 mg PO TID 05/06/19 05/06/19 Unknown History Ipratropium/Albuter (Nf) 1 puff IH Q8HR 05/06/19 05/06/19 Unknown History [Combivent Inhaler] Levothyroxine [Synthroid] 100 mcg PO QAM 05/06/19 05/06/19 Unknown History PANTOPRAZOLE SODIUM (nf) [Protonix 40 mg PO DAILY 05/06/19 05/06/19 Unknown History GRANULES] allopurinoL [Zyloprim] 100 mg PO QDAY 05/06/19 05/06/19 Unknown History Aspirin [Aspirin BABY CHEW TAB] 81 mg PO QDAY #30 tab.chew 05/13/19 Unknown Rx Insulin NPH/Regular [NovoLIN 70/30] 18 unit SUB-Q BIDDIAB #10 ml 05/13/19 Unknown Rx Metoprolol [Lopressor TAB] 25 mg PO BID #60 tablet 05/13/19 Unknown Rx Active Medications: Generic Name Dose Route Start Last Admin Trade Name Freq PRN Reason Stop Dose Admin Acetaminophen 650 mg 05/06/19 02:19 Tylenol PO Q4H PRN Pain MILD(1-3)/Fever >100.5/JENKINS Albuterol 2.5 mg 05/06/19 02:19 Proventil IH Q3HRT PRN Shortness Of Breath Albuterol/Ipratropium 1 ampul 05/07/19 14:00 05/13/19 13:48 Duoneb *Not For Prn Use* IH 1 ampul TIDRT STACEY Administration Allopurinol 100 mg 05/06/19 10:00 05/13/19 10:55 Zyloprim PO 100 mg QDAY STACEY Administration Arformoterol Tartrate 15 mcg 05/07/19 20:00 05/13/19 08:27 Vandana Lux IH 15 mcg Q12HRT STACEY Administration Aspirin 81 mg 05/12/19 10:00 05/12/19 12:16 Baby Aspirin PO 81 mg QDAY STACEY Administration Atorvastatin Calcium 40 mg 05/06/19 22:00 05/12/19 21:58 Lipitor PO 40 mg QHS STACEY Administration Budesonide 0.5 mg 05/06/19 08:00 05/13/19 08:25 Pulmicort IH 0.5 mg Q12HRT STACEY Administration Clopidogrel Bisulfate 75 mg 05/06/19 10:00 05/13/19 10:55 Plavix PO 75 mg QDAY STACEY Administration Dextrose 50 ml 05/06/19 02:19 D50w (25gm) Syringe IV Q30MIN PRN Hypoglycemia Protocol Docusate Sodium 100 mg 05/06/19 10:00 05/13/19 10:55 Colace PO 100 mg BID STACEY Administration Enoxaparin Sodium 30 mg 05/07/19 10:00 05/13/19 10:56 Enoxaparin SUB-Q 30 mg QDAY STACEY Administration Gabapentin 100 mg 05/06/19 08:00 05/13/19 10:55 Gabapentin PO 100 mg TID STACEY Administration Sodium Chloride 1,000 mls @ 50 mls/hr 05/09/19 14:00 05/12/19 21:59 Nacl 0.9% 1000 Ml IV 50 mls/hr DIRECT STACEY Administration Sodium Chloride 1,000 mls @ 100 mls/hr 05/09/19 15:30 Nacl 0.9% 1000 Ml IV DIRECT STACEY Insulin Human Isoph/Insulin Regular 18 unit 05/07/19 17:00 05/13/19 10:03 Humulin 70/30 SUB-Q Not Given BIDDIAB STACEY Insulin Human Lispro 0 unit 05/06/19 07:30 05/13/19 08:32 Humalog SUB-Q Not Given ACHS [facility] Protocol Levothyroxine Sodium 100 mcg 05/06/19 06:00 05/13/19 05:15 Synthroid PO 100 mcg QAM@0600 STACEY Administration Methylprednisolone Sodium Succinate 40 mg 05/12/19 10:00 05/13/19 10:57 Solu-Medrol IV 40 mg Q24HR STACEY Administration Metoprolol Tartrate 25 mg 05/11/19 22:00 05/13/19 10:55 Metoprolol PO 25 mg BID STAECY Administration Nitroglycerin 0.4 mg 05/06/19 02:19 Nitrostat SL .Q5MIN PRN Chest Pain Ondansetron HCl 4 mg 05/06/19 02:19 Zofran IV Q8H PRN Nausea And Vomiting Pantoprazole Sodium 40 mg 05/06/19 10:00 05/13/19 10:55 Protonix PO 40 mg DAILY STACEY Administration Sodium Chloride 10 ml 05/06/19 10:00 05/12/19 22:00 Sodium Chloride Flush Syringe 10 Ml IV 10 ml BID STACEY Administration Sodium Chloride 10 ml 05/06/19 02:19 05/13/19 11:00 Sodium Chloride Flush Syringe 10 Ml IV 10 ml PRN PRN Administration LINE FLUSH
--- NOTE | 2019-05-13 14:47 | Discharge Summary ---
Providers - Providers Date of Admission: 05/06/19 01:31 Date of discharge: 05/13/19 Attending physician: REBECCA BENITEZ 05/06/19 02:19 Consult to Physician [CONS] Routine Comment: Consulting Provider: KELSEY TREVINO Physician Instructions: Reason For Exam: AE CHF, has ICD, elevated trop Consult to Physician [CONS] Routine Comment: Consulting Provider: RONA NORMAN Physician Instructions: Reason For Exam: BRIANA ??CKD 05/11/19 09:18 Physical Therapy Evaluation and Treat [CONS] Routine Comment: Reason For Exam: placement Primary care physician: [employer] DI[employer]ATOR Hospitalization Condition: Stable Hospital course: 74-year-old female with history of CHF, pacemaker/ICD, CVA, NH, hypertension, diabetes, COPD, gout, hypothyroidism GERD, and HLD was admitted through [facility] with worsening shortness of breath and wheezing. Patient is receiving heart failure medications as well as nebulizers steroids antibiotics, Blood sugars are uncontrolled due to high-dose steroids, renal function also declined. Discharge diagnosis and Mx: /-Acute on chronic systolic congestive heart failure; 40 to 45% EF s/p IV diuresis, input output monitoring, low-sodium diet Fluid restriction, heart failure medications Cardiology following, No ACEI/ARB or diuretics in setting of renal insufficiency. /Hyperkalemia, sample hemolyzed, ordered repeat bmp level /Acute kidney injury; worsening renal function - but appears steady now vasomotor nephropathy due to diuretics avoid nephrotoxins, stoped diuretics, nephrology following Monitor BMP daily /Type II DM; uncontrolled Probably secondary to high-dose steroid use Accu-Chek sliding scale coverage ADA diet and increased Novolin 70/30 18 units twice daily, adjust as needed HbA1c 7.7 /-Acute on chronic respiratory failure; Secondary to acute exacerbation of systolic congestive heart failure Oxygen titrate O2 sats to more than 90% Heart failure medications, input output monitoring, supportive care /-Non-ST elevation NH; nonspecific Cardiology following, continue cardiac medications /History of COPD/acute exacerbation Oxygen nebulizers tapering doses IV steroids, inhalation steroids,Supportive care, /-HTN; moderate control Continue current antihypertensives and PRN medications Supportive care /-GERD; on Protonix /-Hypothyroidism; continue Synthroid /Physical debility, PT consulted /DVT PPX; Lovenox renal dose /-Full CODE STATUS; Disposition; home with HH and outpt f/u Physical exam - Exam Narrative Exam: General appearance: Present: mild distress, well-nourished, obese - EENT Eyes: Present: PERRL, EOM intact - Neck Neck: Present: supple, normal ROM - Respiratory Respiratory effort: normal Respiratory: bilateral: diminished, rhonchi, negative: rales, wheezing - Cardiovascular Rhythm: regular Heart Sounds: Present: S1 & S2 - Extremities Extremities: no ischemia, No edema - Abdominal General gastrointestinal: soft, non-tender, non-distended, normal bowel sounds - Integumentary Integumentary: Present: clear, warm - Psychiatric Psychiatric: appropriate mood/affect, cooperative - Neurologic Neurologic: CNII-XII intact, moves all extremities Disposition: [id number]/[place]-06 HOME UNDER HOME [facility] Time spent for discharge: 34 minutes Core Measure Documentation - Palliative Care Palliative Care/ Comfort Measures: Not Applicable - Core Measures Any of the following diagnoses?: none Exam - Constitutional Vitals: Temp Pulse Resp BP Pulse Ox 97.8 F 74 18 138/78 100 05/13/19 04:41 05/13/19 13:49 05/13/19 13:49 05/13/19 10:55 05/13/19 08:46 Plan Activity: advance as tolerated Weight Bearing Status: Non-Weight Bearing Diet: renal Follow up with: PRIMARY CARE, [Primary Care Provider] - 7 Days Prescriptions: Aspirin [Aspirin BABY CHEW TAB] 81 mg PO QDAY #30 tab.chew Metoprolol [Lopressor TAB] 25 mg PO BID #60 tablet Insulin NPH/Regular [NovoLIN 70/30] 18 unit SUB-Q BIDDIAB #10 ml
== END 2019-05-13 20:05 | disposition home health service (06) | DRG 280 ==
LOC: ED 23:22 → 4A 05-06 01:31
PROVIDERS: ADMIT Internal Medicine; ATTEND Internal Medicine
PROC: 5A09357 Assistance with Respiratory Ventilation, Less than 24 Consecutive Hours, Continuous Positive Airway Pressure (ICD-10-PCS; principal; 2019-05-06)
PROC: 5A09357 Assistance with Respiratory Ventilation, Less than 24 Consecutive Hours, Continuous Positive Airway Pressure (ICD-10-PCS; 2019-05-07)
DX: I13.0 Hypertensive heart and chronic kidney disease with heart failure and stage 1 through stage 4 chronic kidney disease, or unspecified chronic kidney disease (principal); I21.A1 Myocardial infarction type 2; I50.23 Acute on chronic systolic (congestive) heart failure; N17.0 Acute kidney failure with tubular necrosis; J96.20 Acute and chronic respiratory failure, unspecified whether with hypoxia or hypercapnia; K21.9 Gastro-esophageal reflux disease without esophagitis; M10.9 Gout, unspecified; E11.22 Type 2 diabetes mellitus with diabetic chronic kidney disease; G47.33 Obstructive sleep apnea (adult) (pediatric); I27.20 Pulmonary hypertension, unspecified; N18.3 Chronic kidney disease, stage 3 (moderate); E11.65 Type 2 diabetes mellitus with hyperglycemia; E03.9 Hypothyroidism, unspecified; E66.9 Obesity, unspecified; J44.9 Chronic obstructive pulmonary disease, unspecified; Z79.899 Other long term (current) drug therapy; Z88.0 Allergy status to penicillin; Z86.73 Personal history of transient ischemic attack (TIA), and cerebral infarction without residual deficits; I25.2 Old myocardial infarction; Z95.5 Presence of coronary angioplasty implant and graft; Z95.810 Presence of automatic (implantable) cardiac defibrillator; Z95.1 Presence of aortocoronary bypass graft; Z87.891 Personal history of nicotine dependence; Z79.4 Long term (current) use of insulin; Z68.35 Body mass index [BMI] 35.0-35.9, adult
CPT/HCPCS: 36415; 71045; 76770; 80048; 80053; 80061; 81001; 82550; 82553; 82570; 82803; 82962; 83036; 83735; 83880; 84132; 84156; 84300; 84436; 84443; 84484; 85007; 85025; 85610; 85730; 89050; 93005; 93010; 93306; 94640; 94644; 94660; 94760; G0378; A9270-GY; J1650; J1815; J1940; J2930; J3475; J7030